=== PATIENT | female | born 1950 | race Caucasian/White ===

== ENCOUNTER 2016-06-28 13:03 | Outpatient (CLI) | payer MEDICARE, BC ==
[2016-06-28] MEDS ORDERED: IOTHALAMATE MEGLUMINE 50 ML VIAL IVP ONE (14:15)
[2016-06-28] MEDS ORDERED: GADOPENTETATE DIMEGLUMINE 5 ML VIAL IVP ONE (14:15)
[2016-06-28] MEDS: BUFFERED LIDOCAINE 10 ML SYRINGE IU ONE ×3 (14:25→14:27)
== END 2016-06-28 13:04 | disposition home or self-care (01) ==
DX: M75.102 Unspecified rotator cuff tear or rupture of left shoulder, not specified as traumatic (principal)
CPT/HCPCS: 23350; 73222; 77002; Q9961

== ENCOUNTER 2016-10-31 11:00 | Outpatient (CLI) | payer MEDICARE, BC | END 2016-10-31 11:01 | disposition home or self-care (01) | LOC: LAB.R 11:00 | PROVIDERS: ATTEND Family Medicine | DX: R30.0 Dysuria (principal) | CPT/HCPCS: 87077; 87086 ==

== ENCOUNTER 2016-11-08 17:44 | Outpatient (CLI) | payer MEDICARE, BC ==
--- NOTE | 2016-11-09 09:32 | Ultrasound Report ---
RENAL ULTRASOUND: 11/08/2016 CLINICAL INDICATION: Hematuria, chronic kidney disease. TECHNIQUE: Real-time scanning was performed with merchandising representative static images obtained. FINDINGS: The right kidney measures 9.0 x 5.9 x 4.8 cm, and the left kidney measures 10.0 x 5.3 x 4. 9 cm. No hydronephrosis or focal renal lesion is appreciated. Prevoid, the urinary bladder measures 7.4 x 6.3 x 5.3 cm, yielding a prevoid volume of 127 mL. Postv oid residual is 27 mL. No focal bladder lesion is seen. IMPRESSION: POSTVOID RESIDUAL OF 27 ML. NORMAL APPEARANCE OF THE KIDNEYS. JOB #: [id number] EXT JOB #:[id number]
== END 2016-11-08 17:45 | disposition home or self-care (01) ==
LOC: DI 17:44
PROVIDERS: ATTEND Family Medicine
DX: R31.9 Hematuria, unspecified (principal); N18.3 Chronic kidney disease, stage 3 (moderate)
CPT/HCPCS: 76770

== ENCOUNTER 2017-03-27 10:36 | Outpatient (CLI) | payer MEDICARE, BC ==
--- NOTE | 2017-03-29 11:31 | Mammography Report ---
DIGITAL SCREENING MAMMOGRAM: 03/27/2017 CLINICAL INDICATION: A 66-year-old with family history of breast cancer, for screening. COMPARISON: 12/2015, 11/2014, 03/2013, 12/2011, 09/2010, 09/2009. TECHNIQUE: Routine CC and MLO projections were obtained of the breasts. FINDINGS: Parenchymal tissue within the breasts is predominantly fatty replaced. There are no domina nt masses, suspicious microcalcifications, or secondary signs of malignancy. In comparison to the pre vious studies, there are no significant changes. IMPRESSION: NO MAMMOGRAPHIC EVIDENCE OF MALIGNANCY. NO SIGNIFICANT INTERVAL CHANGES. RECOMMENDATION: Screening mammography is recommended annually. BIRADS category 1 - negative. STANDARD QUALIFYING STATEMENTS 1. This examination was reviewed with the aid of Computed-Aided Detection (CAD). 2. A negative or benign imaging report should not delay biopsy if clinically suspicious findings are present. Consider surgical consultation if warranted. More than 5% of cancers are not identified by i maging. 3. Dense breasts may obscure an underlying neoplasm. JOB #: [id number] EXT JOB #:[id number]
== END 2017-03-27 10:37 | disposition home or self-care (01) ==
LOC: DI 10:36
PROVIDERS: ATTEND Physician Assistant Medical
DX: Z12.31 Encounter for screening mammogram for malignant neoplasm of breast (principal); Z80.3 Family history of malignant neoplasm of breast
CPT/HCPCS: 77067

== ENCOUNTER 2017-04-25 08:00 | Outpatient (CLI) | payer MEDICARE, BC ==
[2017-04-25 18:41] LABS: HCT - HEMATOCRIT 39.3 % (37.0-47.0); HGB - HEMOGLOBIN 12.5 g/dL (12.0-16.0); MEAN CORPUSCULAR HGB CONC 31.8 g/dL (32.0-36.0); MEAN CORPUSCULAR VOLUME 91.2 fL (81.0-99.0); MEAN PLATELET VOLUME 9.4 fL (7.9-10.8); RED BLOOD COUNT 4.3 10^6/uL (4.20-5.40); RED CELL DISTRIBUTION WIDTH 15.5 % (12.0-15.0)
[2017-04-25 18:55] LABS: CALCIUM 9.4 mg/dL (8.5-10.3); CREATININE 1.7 mg/dL (0.4-1.0); POTASSIUM 3.9 mmol/L (3.5-5.0)
== END 2017-04-25 23:59 ==
LOC: LAB.WCP 08:00
PROVIDERS: ATTEND Family Medicine
DX: N18.3 Chronic kidney disease, stage 3 (moderate) (principal)
CPT/HCPCS: 36415; 80048

== ENCOUNTER 2017-05-28 11:36 | Outpatient (CLI) | payer MEDICARE, BC ==
--- NOTE | 2017-05-28 19:32 | XRAY Report ---
DATE OF SERVICE: 05/28/2017 RIGHT HIP AND PELVIS: 05/28/2017 CLINICAL INDICATION: Fall, pain. Frontal view of the hips and pelvis and frogleg lateral view of the right hip demonstrate no evidence of acute fracture or dislocation. Mild osteoarthritis is present. Vascular calcifications are noted. No foreign body is seen in the soft tissues. IMPRESSION: Mild osteoarthritis. No evidence of fracture. TD: 05/28/2017 20:24
== END 2017-05-28 11:37 | disposition home or self-care (01) ==
LOC: DI 11:36
PROVIDERS: ATTEND Physician Assistant Medical
DX: M16.11 Unilateral primary osteoarthritis, right hip (principal)

== ENCOUNTER 2017-06-28 09:35 | Outpatient (CLI) | payer MEDICARE, BC ==
--- NOTE | 2017-07-02 09:37 | DEXA Report ---
DEXA SCAN: 06/28/2017 CLINICAL INDICATION: Postmenopausal. TECHNIQUE: Dual energy x-ray absorptiometry (DXA) was performed on a [employer] system. Regions measured are the AP spine, femoral neck, and, if needed, forearm. COMPARISON: None. Using the data from the left forearm and left hip. In accordance with the International Society for Clinical Densitometry (ISCD) guidelines, data from previous exams may be reanalyzed using current recommendations and techniques. This is done to allow a more accurate basis for comparison with the current study. FINDINGS: The data for the hip is as follows: REGION BMD (g/cm/cm) T-SCORE Z-SCORE Neck 0.693 -2.5 -1.7 TOTAL 0.851 -1.2 -0.7 The data for the forearm is as follows: REGION BMD (g/cm/cm) T-SCORE Z-SCORE 1/3 1.010 1.5 3.1 TOTAL 0.775 1.7 3.3 IMPRESSION 1. THE WHO CLASSIFICATION BASED ON THE INTERNATIONAL REFERENCE STANDARD IS OSTEOPOROSIS (REFERENCE LEFT FEMORAL NECK). THE FRACTURE RISK IS HIGH. 2. LUMBAR SPINE EVALUATION NOT PERFORMED, SECONDARY TO MULTIPLE LUMBAR SURGERIES. RECOMMENDATION: Patients with diagnosis of osteoporosis or osteopenia should have regular bone mineral density assessment. For those eligible for Medicare, routine testing is allowed once every 2 years. Testing frequency can be increased for patients who have rapidly progressing disease or for those who are receiving medical therapy to restore bone mass. COMMENT: World Health Organization (WHO) definitions for osteoporosis and osteopenia: NORMAL BMD: T-score at 1.0 or higher, fracture risk is low. OSTEOPENIA BMD: T-score between 1.0 and -2.5, fracture risk is increased. OSTEOPOROSIS BMD: T-score at 2.5 or lower, fracture risk high. National Osteoporosis Foundation recommends: 1. Obtain adequate dietary calcium (at least 1200 mg per day) and vitamin D (400 -800 international units per day). 2. Participate, as appropriate, in regular weightbearing and muscle- strengthening exercise. 3. Avoid tobacco use and reduce alcohol and caffeine intake. 4. For more detailed information see the website at www.NOF.org. MTDD
== END 2017-06-28 09:36 | disposition home or self-care (01) ==
LOC: DI 09:35
PROVIDERS: ATTEND Family Medicine
DX: M81.0 Age-related osteoporosis without current pathological fracture (principal)
CPT/HCPCS: 77080; 77081

== ENCOUNTER 2017-10-14 09:57 | Outpatient (CLI) | payer MEDICARE, BC ==
[2017-10-14 13:39] LABS: BASOPHILS % (AUTO) 0.7 %; EOSINOPHILS % (AUTO) 1.3 %; HGB - HEMOGLOBIN 12.4 g/dL (12.0-16.0); LYMPHOCYTES % (AUTO) 6.6 %; MEAN CORPUSCULAR HEMOGLOBIN 30.1 pg (27.0-31.0); MEAN CORPUSCULAR HGB CONC 32.9 g/dL (32.0-36.0); MEAN CORPUSCULAR VOLUME 91.6 fL (81.0-99.0); MEAN PLATELET VOLUME 8.9 fL (7.9-10.8); MONOCYTES % (AUTO) 8.8 %; NEUTROPHILS % (AUTO) 82.6 %; PLT - PLATELET COUNT 199 10^3/uL (130-450); RED CELL DISTRIBUTION WIDTH 16.1 % (12.0-15.0); WHITE BLOOD COUNT 9.2 x10^3/uL (4.8-10.8)
[2017-10-14 13:51] LABS: ABNORMAL LYMPHS % (MANUAL) 0 %
[2017-10-14 13:58] LABS: ALBUMIN 3.6 g/dL (3.2-5.5); ALBUMIN/GLOBULIN RATIO 1.3 (1.0-2.2); BILIRUBIN,TOTAL 0.6 mg/dL (0.2-1.0); CALCIUM 9.1 mg/dL (8.5-10.3); CREATININE 1.7 mg/dL (0.4-1.0); CRP HIGH SENSITIVITY 3.8 mg/L; TOTAL PROTEIN 6.3 g/dL (6.7-8.2)
[2017-10-14 14:31] LABS: BAND NEUTROPHILS % (MANUAL) 2 %; BASOPHILS # (MANUAL) 0.3 10^3/uL (0-0.1); BASOPHILS % (MANUAL) 3 %; EOSINOPHILS # (MANUAL) 0.1 10^3/uL (0-0.7); LYMPHOCYTES # (MANUAL) 0.6 10^3/uL (1.5-3.5); LYMPHOCYTES % (MANUAL) 7 %; MONOCYTES # (MANUAL) 0.7 10^3/uL (0.0-1.0); NEUTROPHILS # (MANUAL) 7.5 10^3/uL (1.5-6.6); NEUTROPHILS % (MANUAL) 79 %
[2017-10-14 14:32] LABS: DIFFERENTIAL COMMENT MANUAL DIFFERENTIAL
== END 2017-10-14 09:58 | disposition home or self-care (01) ==
LOC: LAB.WCP 09:57
PROVIDERS: ATTEND Internal Medicine Rheumatology
DX: M05.79 Rheumatoid arthritis with rheumatoid factor of multiple sites without organ or systems involvement (principal); Z79.899 Other long term (current) drug therapy
CPT/HCPCS: 36415; 80053; 85025; 85651; 86141

== ENCOUNTER 2018-04-21 10:10 | Outpatient (CLI) | payer MEDICARE, BC ==
--- NOTE | 2018-04-22 08:51 | Mammography Report ---
Reason: SCREENING MAMMO Procedure Date: 04/21/2018 Accession Number: [id number] / [id number] Procedure: MGN - Screening Mammo Dig Bilat CPT Code: FULL RESULT: EXAM: Screening Mammo Dig Bilat DATE: 04/21/2018 10:40 AM CLINICAL HISTORY: Screening. Family history breast cancer mother age 55, grandmother age 50. No reported personal history of breast cancer. TECHNIQUE: Bilateral CC and MLO views were obtained. COMPARISON: 03/27/2017 through 04/03/2013 FINDINGS: The breasts demonstrate diffuse fatty replacement bilaterally. Bilateral breasts: There are no suspicious masses, calcifications or areas of distortion. IMPRESSION: Negative examination RECOMMENDATION: Routine annual screening unless otherwise clinically indicated. Given family history, patient may be at elevated risk for development of breast cancer. Consider formal breast cancer risk assessment; if elevated, patient may benefit from advanced screening. BI-RADS CATEGORY negative STANDARD QUALIFYING STATEMENTS: 1. This examination was reviewed with the aid of Computer-Aided Detection (CAD). 2. A negative or benign imaging report should not preclude biopsy if clinically suspicious findings are present. 3. Dense breasts may obscure an underlying neoplasm. 4. This examination was reviewed without the aid of 3D breast imaging (tomosynthesis).
== END 2018-04-21 10:11 | disposition home or self-care (01) ==
LOC: DI.N 10:10
DX: Z12.31 Encounter for screening mammogram for malignant neoplasm of breast (principal); Z80.3 Family history of malignant neoplasm of breast
CPT/HCPCS: 77067

== ENCOUNTER 2018-07-08 08:00 | Outpatient (CLI) | payer MEDICARE, BC | END 2018-07-08 23:59 | disposition home or self-care (01) | LOC: LAB.WCP 08:00 | PROVIDERS: ATTEND Family Medicine | DX: R30.0 Dysuria (principal) | CPT/HCPCS: 81002 ==

== ENCOUNTER 2018-07-09 09:20 | Outpatient (CLI) | payer MEDICARE, BC | END 2018-07-09 23:59 | disposition home or self-care (01) | LOC: LAB.WCP 09:20 | PROVIDERS: ATTEND Family Medicine | DX: R30.0 Dysuria (principal) | CPT/HCPCS: 87086; 87181 ==

== ENCOUNTER 2018-07-24 08:00 | Outpatient (CLI) | payer MEDICARE, BC ==
[2018-07-24 19:21] LABS: BILIRUBIN,URINE NEGATIVE (NEGATIVE); GLUCOSE, URINE (UA) NEGATIVE (NEGATIVE); KETONES,URINE (UA) NEGATIVE (NEGATIVE); LEUKOCYTE ESTERASE, URINE NEGATIVE (NEGATIVE); NITRITE,URINE NEGATIVE (NEGATIVE); OCCULT BLOOD,URINE NEGATIVE (NEGATIVE); PH,URINE 5.5 PH (5.0-7.5); PROTEIN,URINE NEGATIVE (NEGATIVE); UROBILINOGEN,URINE 0.2 (NORMAL) E.U./dL (NORMAL)
[2018-07-24 19:43] LABS: AMORPHOUS SEDIMENT,UR Few /LPF; BACTERIA,URINE None Seen /HPF (None Seen); CLARITY,URINE CLEAR (CLEAR); RBC,URINE None Seen /HPF (0-5); SQUAMOUS EPITHELIAL CELL,UR MANY Squamous (<= Few)
== END 2018-07-24 08:01 | disposition home or self-care (01) ==
LOC: LAB.WCP 08:00
PROVIDERS: ATTEND Family Medicine
DX: R30.0 Dysuria (principal)
CPT/HCPCS: 81001; 87086

== ENCOUNTER 2018-08-02 21:12 | Outpatient (CLI) | payer MEDICARE, BC | END 2018-08-02 21:13 | disposition critical access hospital (66) | LOC: EMS 21:12 | PROVIDERS: ATTEND Surgery | DX: R44.0 Auditory hallucinations (principal); R44.1 Visual hallucinations; R53.1 Weakness; R42 Dizziness and giddiness | CPT/HCPCS: A0425; A0429 ==

== ENCOUNTER 2018-08-02 21:31 | Emergency (ER) | payer MEDICARE, BC ==
--- NOTE | 2018-08-02 21:55 | ED Physician Documentation ---
PD HPI ALTERED MENTAL STATUS - Stated complaint Stated Complaint: HALLUCINATING/POST SURG - Chief complaint Chief Complaint: MHE - History obtained from History obtained from: Patient, Family (spouse) - History of Present Illness Timing - onset: How many days ago (2) Timing - duration: Days (2) Timing - details: Gradual onset, Constant, Waxing and waning Quality / character: Confused, Hallucinating Associated symptoms: General weakness. No: Fever, Headache, Stiff neck, Dyspnea, Cough, NVD, Urinary sx, Focal weakness Contributing factors: New medication (has been taking post-operative oxycodone and hydroxyzine, but has had neither of these since midnight last night (22 h ours ago)). No: Anticoagulated Basline status: Alert and oriented X 3, Ambulatory, Independent Similar symptoms before: Has not had sx before Recently seen: Surgery - Additional information Additional information: patient had surgery on left foot 4 days ago (for gradually worsening chronic condition; per spouse, there was hardware placed and also a procedure on the posterior calf muscles where they insert to the heel). The procedure was performed at [facility]. For the past 2 days, she has exhibited increasing confusion, disorientation, intermittently hallucinating (visual). She has been increasingly drowsy at times (such as falling asleep while eating), and has had increasing generalized weakness (could feed self up until yesterday but today could not even raise food or drink up to her mouth). Since this afternoon, she has been too weak to stand and/or transfer, even with assistance from spouse and other family. Review of Systems Constitutional: reports: Fatigue. denies: Fever, Chills, Sweats Eyes: reports: Reviewed and negative Cardiac: reports: Reviewed and negative Respiratory: reports: Reviewed and negative GI: reports: Reviewed and negative : denies: Dysuria, Frequency Skin: denies: Rash Musculoskeletal: reports: Extremity swelling. denies: Extremity pain (post- operative LLE pain but has been improving, even without having pain medications for nearly 24 hours) Neurologic: reports: Generalized weakness, Confused. 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 - Present Medications Home Medications: Ambulatory Orders Medication Instructions Recorded Confirmed Atorvastatin [Lipitor] 10 mg PO DAILY 07/20/16 08/02/18 Hydroxychloroquine [Plaquenil] 200 mg PO BID 07/20/16 08/02/18 Prednisone 5 mg PO DAILY 07/20/16 08/02/18 Leflunomide 20 mg PO QDAC 08/03/16 08/02/18 Venlafaxine HCl [Venlafaxine HCl 2 cap PO QPM 08/03/16 08/02/18 ER] Alendronate [Fosamax] 70 mg PO ONCE 11/08/17 08/02/18 Aspirin 1 tab PO DAILY 08/02/18 08/02/18 Bupropion HCl [Bupropion HCl Sr] 1 tab PO BID 08/02/18 08/02/18 Gabapentin 1 cap PO BID 08/02/18 08/02/18 Losartan/Hydrochlorothiazide 1 tab PO DAILY 08/02/18 08/02/18 [Losartan-Hctz 100-25 mg Tab] - Allergies Allergies/Adverse Reactions: Allergies Allergy/AdvReac Type Severity Reaction Status Date / Time lisinopril Allergy Unknown Verified 08/02/18 22:29 Sulfa (Sulfonamide Allergy Unknown Verified 08/02/18 22:29 Antibiotics) - Social History Does the pt smoke?: No Smoking Status: Never smoker Does the pt drink ETOH?: No Does the pt have substance abuse?: No - Immunizations Immunizations are current?: Yes - POLST Patient has POLST: No PD ED PE NORMAL - Vitals Vital signs reviewed: Yes - General General: No acute distress, Well developed/nourished, Other (awake, alert, pleasant and conversant. answers quickly, articulately, and intelligibly. However, (present in ED at bedside) says many of her answers are lin ccurate. Also, she is disoriented to time (says month is September after much thought; says year is 1966, then . Eventually recalls who the President is). ) - HEENT HEENT: Atraumatic, PERRL, Moist mucous membranes - Neck Neck: Supple, no meningeal sign - Cardiac Cardiac: RRR, No murmur, No gallop, No rub - Respiratory Respiratory: Clear bilaterally - Abdomen Abdomen: Normal bowel sounds, Soft, Non tender, Non distended - Back Back: No CVA TTP - Derm Derm: Warm and dry - Extremities Extremities: Other (LLE: splint in place with circumferential stocking-like dressing. The dressing is clean (no discharge or blood); toes are visible and they have brisk capillary refill, normal color, and light touch sensation intact) - Neuro Neuro: thread singer 2-12 intact, No motor deficit, No sensory deficit, Normal speech Eye Opening: Spontaneous Motor: Obeys Commands Verbal: Confused GCS Score: 14 - Psych Psych: Normal mood, Normal affect Results - Vitals Vitals: Vital Signs - 24 hr 08/02/18 08/02/18 08/02/18 21:30 22:26 22:49 Temperature 37.5 C Heart Rate 100 96 97 Respiratory 28 H 22 18 Rate Blood Pressure 110/43 L 107/63 119/47 L O2 Saturation 100 96 08/02/18 08/02/18 08/03/18 23:11 23:22 00:28 Temperature 36.5 C 36.8 C 36.4 C L Heart Rate 96 97 Respiratory 17 21 Rate Blood Pressure 110/45 L 91/69 O2 Saturation 98 08/03/18 08/03/18 08/03/18 00:33 00:48 00:50 Temperature 36.5 C 36.7 C 36.7 C Heart Rate 102 H 101 H 106 H Respiratory 19 16 19 Rate Blood Pressure 90/56 L 99/88 H 99/88 H O2 Saturation 98 08/03/18 08/03/18 08/03/18 01:12 01:34 02:01 Temperature 36.6 C 36.7 C Heart Rate 99 99 98 Respiratory 20 20 20 Rate Blood Pressure 94/46 L 95/67 91/70 O2 Saturation 98 98 98 08/03/18 02:18 Temperature 36.5 C Heart Rate 95 Respiratory 20 Rate Blood Pressure 91/70 O2 Saturation Oxygen O2 Source Room air - Labs Labs: Laboratory Tests 08/02/18 08/02/18 08/02/18 21:55 21:55 21:55 WBC 6.9 RBC 2.20 L Hgb 6.5 L* Hct 19.6 L* MCV 89.0 MCH 29.5 MCHC 33.2 RDW 15.6 H Plt Count 203 MPV 8.2 Reticulocyte % (Auto) Neut # (Auto) 4.9 Lymph # (Auto) 0.7 L Steele # (Auto) 1.1 H Eos # (Auto) 0.2 Baso # (Auto) 0.0 Absolute Nucleated RBC 0.00 Nucleated RBC % 0.0 Absolute Retic PT 12.2 INR 1.1 Sodium 132 L Potassium 4.3 Chloride 91 L Carbon Dioxide 25 Anion Gap 16.0 H BUN 67 H Creatinine 4.8 H Estimated GFR (MDRD) 9 L Glucose 101 H Lactic Acid Calcium 8.5 Iron TIBC Transferrin Ferritin Total Bilirubin 0.7 AST 56 H ALT 10 Alkaline Phosphatase 210 H Lactate Dehydrogenase Total Protein 6.2 L Albumin 2.9 L Globulin 3.3 Albumin/Globulin Ratio 0.9 L Lipase 21 L Urine Color Urine Clarity Urine pH Ur Specific Rose Urine Protein Urine Glucose (UA) Urine Ketones Urine Occult Blood Urine Nitrite Urine Bilirubin Urine Urobilinogen Ur Leukocyte Esterase Urine RBC Urine WBC Ur Squamous Epith Cells Amorphous Sediment Urine Bacteria Urine Casts Ur Microscopic Review Urine Culture Comments Influenza A (Rapid) Influenza B (Rapid) Blood Type Blood Type Recheck Antibody Screen Crossmatch IS Only 08/02/18 08/02/18 08/02/18 22:10 22:10 22:10 WBC RBC Hgb Hct MCV MCH MCHC RDW Plt Count MPV Reticulocyte % (Auto) Neut # (Auto) Lymph # (Auto) Steele # (Auto) Eos # (Auto) Baso # (Auto) Absolute Nucleated RBC Nucleated RBC % Absolute Retic PT INR Sodium Potassium Chloride Carbon Dioxide Anion Gap BUN Creatinine Estimated GFR (MDRD) Glucose Lactic Acid 1.1 Calcium Iron TIBC Transferrin Ferritin Total Bilirubin AST ALT Alkaline Phosphatase Lactate Dehydrogenase Total Protein Albumin Globulin Albumin/Globulin Ratio Lipase Urine Color YELLOW Urine Clarity HAZY Urine pH 5.5 Ur Specific Rose >=1.030 H Urine Protein TRACE Urine Glucose (UA) NEGATIVE Urine Ketones NEGATIVE Urine Occult Blood SMALL H Urine Nitrite NEGATIVE Urine Bilirubin NEGATIVE Urine Urobilinogen 0.2 (NORMAL) Ur Leukocyte Esterase NEGATIVE Urine RBC 6-10 H Urine WBC 0-3 Ur Squamous Epith Cells FEW Squamous Amorphous Sediment Few Urine Bacteria Few Urine Casts 11-25 Hyaline Casts Ur Microscopic Review INDICATED Urine Culture Comments NOT INDICATED Influenza A (Rapid) Negative Influenza B (Rapid) Negative Blood Type Blood Type Recheck Antibody Screen Crossmatch IS Only 08/02/18 08/02/18 08/03/18 22:50 23:39 00:16 WBC RBC Hgb 6.2 L* Hct 18.6 L* MCV MCH MCHC RDW Plt Count MPV Reticulocyte % (Auto) Neut # (Auto) Lymph # (Auto) Steele # (Auto) Eos # (Auto) Baso # (Auto) Absolute Nucleated RBC Nucleated RBC % Absolute Retic PT INR Sodium Potassium Chloride Carbon Dioxide Anion Gap BUN Creatinine Estimated GFR (MDRD) Glucose Lactic Acid Calcium Iron TIBC Transferrin Ferritin Total Bilirubin AST ALT Alkaline Phosphatase Lactate Dehydrogenase Total Protein Albumin Globulin Albumin/Globulin Ratio Lipase Urine Color Urine Clarity Urine pH Ur Specific Rose Urine Protein Urine Glucose (UA) Urine Ketones Urine Occult Blood Urine Nitrite Urine Bilirubin Urine Urobilinogen Ur Leukocyte Esterase Urine RBC Urine WBC Ur Squamous Epith Cells Amorphous Sediment Urine Bacteria Urine Casts Ur Microscopic Review Urine Culture Comments Influenza A (Rapid) Influenza B (Rapid) Blood Type A NEGATIVE Blood Type Recheck A NEGATIVE Antibody Screen NEGATIVE Crossmatch IS Only See Detail 08/03/18 08/03/18 08/03/18 01:10 01:10 01:10 WBC RBC Hgb Hct MCV MCH MCHC RDW Plt Count MPV Reticulocyte % (Auto) Neut # (Auto) Lymph # (Auto) Steele # (Auto) Eos # (Auto) Baso # (Auto) Absolute Nucleated RBC Nucleated RBC % Absolute Retic PT INR Sodium Potassium Chloride Carbon Dioxide Anion Gap BUN Creatinine Estimated GFR (MDRD) Glucose Lactic Acid Calcium Iron < 6 L TIBC 256 Transferrin 183 L Ferritin 118.6 Total Bilirubin AST ALT Alkaline Phosphatase Lactate Dehydrogenase 253 H Total Protein Albumin Globulin Albumin/Globulin Ratio Lipase Urine Color Urine Clarity Urine pH Ur Specific Rose Urine Protein Urine Glucose (UA) Urine Ketones Urine Occult Blood Urine Nitrite Urine Bilirubin Urine Urobilinogen Ur Leukocyte Esterase Urine RBC Urine WBC Ur Squamous Epith Cells Amorphous Sediment Urine Bacteria Urine Casts Ur Microscopic Review Urine Culture Comments Influenza A (Rapid) Influenza B (Rapid) Blood Type Blood Type Recheck Antibody Screen Crossmatch IS Only 08/03/18 01:10 WBC RBC 2.16 L Hgb Hct MCV MCH MCHC RDW Plt Count MPV Reticulocyte % (Auto) 3.78 H Neut # (Auto) Lymph # (Auto) Steele # (Auto) Eos # (Auto) Baso # (Auto) Absolute Nucleated RBC Nucleated RBC % Absolute Retic 0.082 PT INR Sodium Potassium Chloride Carbon Dioxide Anion Gap BUN Creatinine Estimated GFR (MDRD) Glucose Lactic Acid Calcium Iron TIBC Transferrin Ferritin Total Bilirubin AST ALT Alkaline Phosphatase Lactate Dehydrogenase Total Protein Albumin Globulin Albumin/Globulin Ratio Lipase Urine Color Urine Clarity Urine pH Ur Specific Rose Urine Protein Urine Glucose (UA) Urine Ketones Urine Occult Blood Urine Nitrite Urine Bilirubin Urine Urobilinogen Ur Leukocyte Esterase Urine RBC Urine WBC Ur Squamous Epith Cells Amorphous Sediment Urine Bacteria Urine Casts Ur Microscopic Review Urine Culture Comments Influenza A (Rapid) Influenza B (Rapid) Blood Type Blood Type Recheck Antibody Screen Crossmatch IS Only - Rads (name of study) chest xray Radiology: Prelim report reviewed, See rad report CT head Radiology: Prelim report reviewed, See rad report PD MEDICAL DECISION MAKING - ED course Complexity details: reviewed old records, reviewed results, re-evaluated patient, considered differential, d/w patient, d/w family ED course: D/W Dr. Rao ([facility]), accepts patient for transfer to [facility] Departure - Departure Disposition: 02 Transfer Acute Care Hosp Clinical Impression: Acute kidney injury Anemia Qualifiers: Anemia type: unspecified type Qualified Code(s): D64.9 - Anemia, unspecified Altered mental status Qualifiers: Altered mental status type: disorientation Qualified Code(s): R41.0 - Disorientation, unspecified Condition: Stable Discharge Date/Time: 08/03/18 02:20
[2018-08-02 22:18] LABS: EOSINOPHILS # (AUTO) 0.2 10^3/uL (0.0-0.7); EOSINOPHILS % (AUTO) 2.7 %; LYMPHOCYTES # (AUTO) 0.7 10^3/uL (1.5-3.5); LYMPHOCYTES % (AUTO) 10.4 %; MEAN CORPUSCULAR HEMOGLOBIN 29.5 pg (27.0-31.0); MEAN CORPUSCULAR HGB CONC 33.2 g/dL (32.0-36.0); MEAN PLATELET VOLUME 8.2 fL (7.9-10.8); MONOCYTES # (AUTO) 1.1 10^3/uL (0.0-1.0); MONOCYTES % (AUTO) 15.8 %; NEUTROPHILS # (AUTO) 4.9 10^3/uL (1.5-6.6); NEUTROPHILS % (AUTO) 71.1 %; PLT - PLATELET COUNT 203 10^3/uL (130-450); RED CELL DISTRIBUTION WIDTH 15.6 % (12.0-15.0); WHITE BLOOD COUNT 6.9 x10^3/uL (4.8-10.8)
[2018-08-02 22:22] LABS: HGB - HEMOGLOBIN 6.5 g/dL (12.0-16.0)
[2018-08-02 22:27] LABS: ALBUMIN 2.9 g/dL (3.2-5.5); ALBUMIN/GLOBULIN RATIO 0.9 (1.0-2.2); BILIRUBIN,TOTAL 0.7 mg/dL (0.2-1.0); CALCIUM 8.5 mg/dL (8.5-10.3); CREATININE 4.8 mg/dL (0.4-1.0); TOTAL PROTEIN 6.2 g/dL (6.7-8.2)
[2018-08-02 22:32] LABS: BILIRUBIN,URINE NEGATIVE (NEGATIVE); GLUCOSE, URINE (UA) NEGATIVE (NEGATIVE); KETONES,URINE (UA) NEGATIVE (NEGATIVE); LEUKOCYTE ESTERASE, URINE NEGATIVE (NEGATIVE); NITRITE,URINE NEGATIVE (NEGATIVE); OCCULT BLOOD,URINE SMALL (NEGATIVE); PH,URINE 5.5 PH (5.0-7.5); PROTEIN,URINE TRACE mg/dL (NEGATIVE); UROBILINOGEN,URINE 0.2 (NORMAL) E.U./dL (NORMAL)
[2018-08-02 22:36] LABS: CLARITY,URINE HAZY (CLEAR)
[2018-08-02 22:51] LABS: BACTERIA,URINE Few /HPF (None Seen); SQUAMOUS EPITHELIAL CELL,UR FEW Squamous (<= Few)
[2018-08-02 22:52] LABS: AMORPHOUS SEDIMENT,UR Few /LPF; CASTS, URINE 11-25 Hyaline Casts /LPF
--- NOTE | 2018-08-02 22:57 | XRAY Report ---
Reason: AMS Procedure Date: 08/02/2018 Accession Number: [id number] / [id number] Procedure: XR - Chest 2 View X-Ray CPT Code: 19711 FULL RESULT: EXAM: CHEST RADIOGRAPHY EXAM DATE: 08/02/2018 10:30 PM. CLINICAL HISTORY: AMS. COMPARISON: CHEST 2 VIEW PA/LAT 02/21/2017 1:47 PM. TECHNIQUE: 2 views. FINDINGS: Lungs/Pleura: The level of inspiration is low. There are no acute infiltrates. No pleural effusions. Mediastinum: Heart and mediastinal contours are unremarkable. Other: Total left shoulder replacement is noted. IMPRESSION: No acute infiltrates. Negative chest x-ray. RADIA
--- NOTE | 2018-08-02 23:07 | CT Report ---
Reason: AMS Procedure Date: 08/02/2018 Accession Number: [id number] / [id number] Procedure: CT - HEAD WO CPT Code: FULL RESULT: EXAM: CT HEAD EXAM DATE: 08/02/2018 10:31 PM. CLINICAL HISTORY: Altered mental status. COMPARISON: None. TECHNIQUE: Multiaxial CT images were obtained from the foramen magnum to the vertex. Reformats: Sagittal and coronal. IV contrast: None. In accordance with CT protocol optimization, one or more of the following dose reduction techniques were utilized for this exam: automated exposure control, adjustment of mA and/or KV based on patient size, or use of iterative reconstructive technique. FINDINGS: Parenchyma: No intraparenchymal hemorrhage. No evidence of mass, midline shift, or CT findings of infarction. Xavier-white differentiation is distinct. Extraaxial Spaces: Normal for age. No subdural or epidural collections identified. Ventricles: Somewhat prominent given the degree of sulcal prominence. Chambers ratio is 0.36. Sinuses and Orbits: Imaged paranasal sinuses, orbits, and mastoids show no significant abnormality. Bones: No evidence of fracture or calvarial defect. Other: None. IMPRESSION: 1. Prominent ventricles may reflect central volume loss or normal pressure hydrocephalus. 2. No acute or focal intracranial process identified. RADIA
[2018-08-02 23:46] LABS: HGB - HEMOGLOBIN 6.2 g/dL (12.0-16.0)
[2018-08-03] MEDS ORDERED: PANTOPRAZOLE 40 MG VIAL IVP STA (00:39)
[2018-08-03 00:54] LABS: INR 1.1 (0.8-1.2); PT - PROTHROMBIN TIME 12.2 secs (9.9-12.6)
[2018-08-03 01:22] LABS: ABSOLUTE RETICS # AUTO 0.082 10^6/uL (0.020-0.110); MEAN RETIC VALUE 112.6; RED BLOOD COUNT 2.16 10^6/uL (4.20-5.40)
[2018-08-03 01:57] LABS: IRON < 6 ug/dL (28-170); TOTAL IRON BINDING CAPACITY 256 ug/dL (250-450); TRANSFERRIN 183 mg/dL (192-382)
[2018-08-03 02:03] VITALS: BP 91/70
== END 2018-08-03 02:20 | disposition short-term general hospital (02) ==
LOC: EDUNIT# → ED 21:31
DX: N17.9 Acute kidney failure, unspecified (principal); D64.9 Anemia, unspecified; R41.0 Disorientation, unspecified; I10 Essential (primary) hypertension; E78.00 Pure hypercholesterolemia, unspecified; Z98.890 Other specified postprocedural states; Z96.659 Presence of unspecified artificial knee joint
CPT/HCPCS: 36415; 36430; 70450; 71046; 80053; 81001; 82728; 83010; 83540; 83605; 83615; 83690; 84466; 85014; 85018; 85025; 85044; 85610; 86850; 86900; 86901; 86920; 87040; 87275; 87276; 96374; 99285; P9016; 81003; 87086

== ENCOUNTER 2018-08-03 02:21 | Outpatient (CLI) | payer MEDICARE, BC | END 2018-08-03 02:22 | disposition short-term general hospital (02) | LOC: EMS 02:21 | PROVIDERS: ATTEND Surgery | DX: D64.9 Anemia, unspecified (principal); R41.0 Disorientation, unspecified | CPT/HCPCS: A0425; A0426 ==

== ENCOUNTER 2018-08-11 08:00 | Outpatient (CLI) | payer MEDICARE, BC ==
[2018-08-11 19:21] LABS: BASOPHILS % (AUTO) 0.5 %; EOSINOPHILS % (AUTO) 1.9 %; LYMPHOCYTES % (AUTO) 6.2 %; MEAN CORPUSCULAR HEMOGLOBIN 29.8 pg (27.0-31.0); MEAN CORPUSCULAR HGB CONC 32.4 g/dL (32.0-36.0); MEAN CORPUSCULAR VOLUME 91.9 fL (81.0-99.0); MONOCYTES % (AUTO) 7.4 %; PLT - PLATELET COUNT 385 10^3/uL (130-450); RED BLOOD COUNT 3.71 10^6/uL (4.20-5.40); WHITE BLOOD COUNT 9.9 x10^3/uL (4.8-10.8)
[2018-08-11 19:39] LABS: ABNORMAL LYMPHS % (MANUAL) 0 %
[2018-08-11 19:41] LABS: ALBUMIN 3.6 g/dL (3.2-5.5); ALBUMIN/GLOBULIN RATIO 1.2 (1.0-2.2); BILIRUBIN,TOTAL 0.8 mg/dL (0.2-1.0); CALCIUM 8.9 mg/dL (8.5-10.3); CREATININE 1.7 mg/dL (0.4-1.0); TOTAL PROTEIN 6.6 g/dL (6.7-8.2)
[2018-08-11 19:57] LABS: BAND NEUTROPHILS % (MANUAL) 1 %; BASOPHILS # (MANUAL) 0.1 10^3/uL (0-0.1); BASOPHILS % (MANUAL) 1 %; LYMPHOCYTES # (MANUAL) 0.7 10^3/uL (1.5-3.5); LYMPHOCYTES % (MANUAL) 7 %; MONOCYTES # (MANUAL) 0.7 10^3/uL (0.0-1.0); MYELOCYTES % (MANUAL) 3 %; NEUTROPHILS # (MANUAL) 8.1 10^3/uL (1.5-6.6); NEUTROPHILS % (MANUAL) 81 %
[2018-08-11 20:02] LABS: DIFFERENTIAL COMMENT MANUAL DIFFERENTIAL; PLATELET ESTIMATE, MANUAL NORMAL (130-450,000) (NORMAL); PLATELET MORPHOLOGY NORMAL APPEARANCE (NORMAL); RBC MORPHOLOGY (MULTIPLE) NORMAL APPEARANCE (NORMAL)
== END 2018-08-11 23:59 | disposition home or self-care (01) ==
LOC: LAB.WCP 08:00
PROVIDERS: ATTEND Family Medicine
DX: N18.3 Chronic kidney disease, stage 3 (moderate) (principal)
CPT/HCPCS: 36415; 80053; 85025

== ENCOUNTER 2018-08-15 08:00 | Outpatient (CLI) | payer MEDICARE, BC | END 2018-08-15 23:59 | disposition home or self-care (01) | LOC: LAB.R 08:00 | DX: G89.29 Other chronic pain (principal) | CPT/HCPCS: 87070; 87077; 87181; 87205 ==

== ENCOUNTER 2019-05-14 11:30 | Outpatient (CLI) | payer MEDICARE, OTHER | END 2019-05-14 23:59 | disposition home or self-care (01) | LOC: LAB.R 11:30 | PROVIDERS: ATTEND Family Medicine | DX: R30.0 Dysuria (principal) | CPT/HCPCS: 87086; 87181 ==

== ENCOUNTER 2019-06-03 09:56 | Day surgery (SDC) | payer MEDICARE, OTHER ==
[2019-06-03] MEDS ORDERED: LACTATED RINGERS 1,000 ML IV ONE (10:03)
[2019-06-03] MEDS ORDERED: MIDAZOLAM 2 MG/2 ML VIAL IVP ONE (12:35)
[2019-06-03] MEDS ORDERED: fentaNYL 250 MCG/5 ML VIAL IVP ONE (12:35)
[2019-06-03 13:47] VITALS: BP 106/59
== END 2019-06-03 09:57 | disposition home or self-care (01) ==
LOC: SDS 09:56
PROVIDERS: ATTEND Internal Medicine Gastroenterology
PROC: 0DBN8ZZ Excision of Sigmoid Colon, Via Natural or Artificial Opening Endoscopic (ICD-10-PCS; 2019-06-03)
PROC: 0DBK8ZZ Excision of Ascending Colon, Via Natural or Artificial Opening Endoscopic (ICD-10-PCS; 2019-06-03)
PROC: 0DBM8ZZ Excision of Descending Colon, Via Natural or Artificial Opening Endoscopic (ICD-10-PCS; principal; 2019-06-03 11:30)
DX: Z12.11 Encounter for screening for malignant neoplasm of colon (principal); D12.2 Benign neoplasm of ascending colon; D12.5 Benign neoplasm of sigmoid colon; D12.4 Benign neoplasm of descending colon; K57.30 Diverticulosis of large intestine without perforation or abscess without bleeding; I10 Essential (primary) hypertension; E66.9 Obesity, unspecified; Z68.41 Body mass index [BMI] 40.0-44.9, adult
CPT/HCPCS: 45380; 45385; J3010; J7120

== ENCOUNTER 2019-06-16 08:00 | Outpatient (CLI) | payer MEDICARE, OTHER | END 2019-06-16 23:59 | disposition home or self-care (01) | LOC: LAB.R 08:00 | PROVIDERS: ATTEND Family Medicine | DX: Z87.440 Personal history of urinary (tract) infections (principal) | CPT/HCPCS: 87086; 87181 ==

== ENCOUNTER 2019-06-17 08:34 | Outpatient (CLI) | payer MEDICARE, OTHER ==
--- NOTE | 2019-06-24 09:35 | Mammography Report ---
Reason: ROUTINE MAMMO Procedure Date: 06/17/2019 Accession Number: [id number] / [id number] Procedure: LYNNE - Screening Mammo w/Damon CPT Code: Final Report FULL RESULT: EXAM: Screening Mammo w/Damon DATE: 06/17/2019 9:39 AM CLINICAL HISTORY: Screening encounter. History of early menses. Family history of breast cancer in the mother at the age of 55. TECHNIQUE: (B) - Bilateral CC and MLO views were obtained. COMPARISON: 04/21/2018 through 09/03/2009. PARENCHYMAL PATTERN: (F) - The breast(s) demonstrate(s) diffuse fatty replacement. FINDINGS: There are no suspicious masses, calcifications, or areas of distortion. IMPRESSION: Negative examination. BI-RADS category 1. RECOMMENDATION: (ANNUAL) - Recommend routine annual screening mammography. BI-RADS CATEGORY: (1) - Negative. STANDARD QUALIFYING STATEMENTS: 1. This examination was not reviewed with the aid of Computer-Aided Detection (CAD). 2. A negative or benign imaging report should not preclude biopsy if clinically suspicious findings are present. 3. Dense breasts may obscure an underlying neoplasm. 4. This examination was reviewed with the aid of 3D breast imaging (tomosynthesis).
== END 2019-06-17 08:35 | disposition home or self-care (01) ==
LOC: DI 08:34
DX: Z12.31 Encounter for screening mammogram for malignant neoplasm of breast (principal); Z80.3 Family history of malignant neoplasm of breast
CPT/HCPCS: 77063; 77067

== ENCOUNTER 2020-01-14 08:00 | Outpatient (CLI) | payer MEDICARE, OTHER ==
[2020-01-14 12:59] LABS: BILIRUBIN,URINE NEGATIVE (NEGATIVE); GLUCOSE, URINE (UA) NEGATIVE (NEGATIVE); KETONES,URINE (UA) NEGATIVE (NEGATIVE); LEUKOCYTE ESTERASE, URINE TRACE (NEGATIVE); NITRITE,URINE POSITIVE (NEGATIVE); OCCULT BLOOD,URINE NEGATIVE (NEGATIVE); PROTEIN,URINE NEGATIVE (NEGATIVE); UROBILINOGEN,URINE 0.2 (NORMAL) E.U./dL (NORMAL)
[2020-01-14 13:07] LABS: BACTERIA,URINE Many /HPF (None Seen); CLARITY,URINE CLEAR (CLEAR); RBC,URINE None Seen /HPF (0-5); SQUAMOUS EPITHELIAL CELL,UR NONE SEEN (<= Few)
== END 2020-01-14 23:59 | disposition home or self-care (01) ==
LOC: LAB.R 08:00
PROVIDERS: ATTEND Family Medicine
DX: Z87.440 Personal history of urinary (tract) infections (principal)
CPT/HCPCS: 81001; 87086; 87181

== ENCOUNTER 2020-03-18 10:51 | Outpatient (CLI) | payer MEDICARE, OTHER ==
--- NOTE | 2020-03-21 11:48 | XRAY Report ---
PROCEDURE: Chest 2 View X-Ray INDICATIONS: WHEZING TECHNIQUE: 2 view(s) of the chest. COMPARISON: Prior two-view chest 08/02/2018 FINDINGS: Surgical changes and devices: Humeral arthroplasty on the left. Lungs and pleura: No pleural effusions or pneumothorax. Lungs are mildly abnormal with a mild inter stitial prominence previously present. Mediastinum: Mediastinal contours are normal. Heart size is normal. Bones and chest wall: No suspicious bony abnormalities. Soft tissues appear unremarkable. IMPRESSION: Mild chronic interstitial prominence, no pneumonia found. Atypical/viral pneumonia is no t suspected. Reviewed by: Casey Markham MD on 03/21/2020 11:46 AM PST Approved by: Casey Markham MD on 03/21/2020 11:46 AM PST Station ID: [id number]
== END 2020-03-18 23:59 | disposition home or self-care (01) ==
LOC: DI.N 10:51
PROVIDERS: ATTEND Nurse Practitioner
DX: R06.2 Wheezing (principal); Z20.828 Contact with and (suspected) exposure to other viral communicable diseases
CPT/HCPCS: 71046; 87275; 87276; U0004

== ENCOUNTER 2020-04-08 07:50 | Outpatient (CLI) | payer MEDICARE, OTHER ==
[2020-04-08 12:44] LABS: BASOPHILS % (AUTO) 0.9 %; EOSINOPHILS # (AUTO) 0.1 10^3/uL (0.0-0.7); EOSINOPHILS % (AUTO) 1.5 %; HGB - HEMOGLOBIN 11.1 g/dL (12.0-16.0); LYMPHOCYTES % (AUTO) 22.7 %; MEAN CORPUSCULAR HEMOGLOBIN 29.2 pg (27.0-31.0); MEAN CORPUSCULAR HGB CONC 29.9 g/dL (32.0-36.0); MEAN CORPUSCULAR VOLUME 97.6 fL (81.0-99.0); MEAN PLATELET VOLUME 11.3 fL (7.9-10.8); MONOCYTES # (AUTO) 0.6 10^3/uL (0.0-1.0); MONOCYTES % (AUTO) 12.4 %; NEUTROPHILS # (AUTO) 2.8 10^3/uL (1.5-6.6); NEUTROPHILS % (AUTO) 62.1 %; PLT - PLATELET COUNT 153 10^3/uL (130-450); WHITE BLOOD COUNT 4.6 x10^3/uL (4.8-10.8)
[2020-04-08 12:55] LABS: BILIRUBIN,URINE NEGATIVE (NEGATIVE); GLUCOSE, URINE (UA) NEGATIVE (NEGATIVE); KETONES,URINE (UA) NEGATIVE (NEGATIVE); LEUKOCYTE ESTERASE, URINE NEGATIVE (NEGATIVE); NITRITE,URINE POSITIVE (NEGATIVE); OCCULT BLOOD,URINE TRACE-LYSE (NEGATIVE); PROTEIN,URINE NEGATIVE (NEGATIVE); UROBILINOGEN,URINE 0.2 (NORMAL) E.U./dL (NORMAL)
[2020-04-08 13:01] LABS: ALBUMIN 3.5 g/dL (3.2-5.5); ALBUMIN/GLOBULIN RATIO 1.3 (1.0-2.2); ALKALINE PHOSPHATASE 56 IU/L (42-121); ALT ALANINE AMINOTRANSFERASE 33 IU/L (10-60); AST ASPARTATE AMINOTRANSFERASE 29 IU/L (10-42); BILIRUBIN,TOTAL 0.4 mg/dL (0.2-1.0); BUN - BLOOD UREA NITROGEN 28 mg/dL (6-20); CALCIUM 8.2 mg/dL (8.5-10.3); CARBON DIOXIDE - CO2 27 mmol/L (21-32); CHLORIDE 104 mmol/L (101-111); CHOL/HDL RATIO 3.5 (<4.4); CHOLESTEROL 235 mg/dL; CREATININE 1.8 mg/dL (0.4-1.0); GLUCOSE 86 mg/dL (70-100); HDL CHOLESTEROL 68 mg/dL; LDL CHOLESTEROL,CALCULATED 127 mg/dL; LDL/HDL RATIO 1.9 (<4.4); SODIUM 141 mmol/L (135-145); TOTAL PROTEIN 6.2 g/dL (6.7-8.2); VLDL CHOLESTEROL 40 mg/dL
[2020-04-08 13:10] LABS: BACTERIA,URINE Many /HPF (None Seen); CLARITY,URINE CLOUDY (CLEAR); RBC,URINE 0-5 /HPF (0-5); SQUAMOUS EPITHELIAL CELL,UR MOD Squamous (<= Few)
[2020-04-08 13:13] LABS: T4 (THYROXINE) 6.45 ug/dL (6.09-12.23)
[2020-04-08 13:14] LABS: THYROID STIMULATING HORMONE 5.65 uIU/mL (0.34-5.60)
[2020-04-08 13:21] LABS: TOTAL T3 0.9 ng/mL (0.87-1.78)
[2020-04-08 14:05] LABS: ALBUMIN 3.5 g/dL (3.2-5.5); ALBUMIN/GLOBULIN RATIO 1.4 (1.0-2.2); BILIRUBIN,TOTAL 0.5 mg/dL (0.2-1.0); CALCIUM 8.4 mg/dL (8.5-10.3); CREATININE 1.7 mg/dL (0.4-1.0)
[2020-04-08 20:39] LABS: HEMOGLOBIN A1c% 5.8 % (4.27-6.07)
== END 2020-04-08 23:59 | disposition home or self-care (01) ==
LOC: LAB.WCP 07:50
PROVIDERS: ATTEND Family Medicine
DX: I12.9 Hypertensive chronic kidney disease with stage 1 through stage 4 chronic kidney disease, or unspecified chronic kidney disease (principal); N18.30 Chronic kidney disease, stage 3 unspecified; F32.9 Major depressive disorder, single episode, unspecified; R73.01 Impaired fasting glucose
CPT/HCPCS: 36415; 80053; 80061; 81001; 82607; 82746; 83036; 83090; 83721; 84436; 84443; 84480; 85025

== ENCOUNTER 2021-04-12 08:27 | Outpatient (CLI) | payer MEDICARE, OTHER ==
--- NOTE | 2021-04-13 11:58 | Mammography Report ---
BILATERAL DIGITAL SCREENING MAMMOGRAM 3D/2D: 04/12/2021 CLINICAL: Family history of breast cancer. Routine screening. Comparison is made to exams dated: 06/17/2019 mammogram, 04/21/2018 mammogram, 03/27/2017 mammogram, 12/29/2015 mammogram, 11/16/2014 mammogram, and 04/03/2013 mammogram - [facility]. T he tissue of both breasts is predominantly fatty. No significant masses, calcifications, or other findings are seen in either breast. There has been no significant interval change. IMPRESSION: NEGATIVE There is no mammographic evidence of malignancy. A 1 year screening mammogram is recommended. This exam was interpreted at Station ID: [id number]. NOTE: For mammograms, a report in lay terms will be sent to the patient. Approximately 15% of breast malignancies will not be visualized mammographically. In the management of a palpable breast mass, a negative mammogram must not discourage biopsy of a clinically suspicious lesion. Electronically Signed By: Wong Chao M.D., jr/ayde:04/12/2021 09:53:36 ACR BI-RADS Category 1: Negative [id number] PARENCHYMAL PATTERN: (F) - The breast(s) demonstrate(s) diffuse fatty replacement. BI-RADS CATEGORY: (1) - 1 RECOMMENDATION: (ANNUAL) - Recommend routine annual screening mammography. [id number] 1 year screening LATERALITY: (B)
== END 2021-04-12 08:28 | disposition home or self-care (01) ==
LOC: DI.N 08:27
PROVIDERS: ATTEND Internal Medicine
DX: Z12.31 Encounter for screening mammogram for malignant neoplasm of breast (principal); Z80.3 Family history of malignant neoplasm of breast

== ENCOUNTER 2021-07-04 08:00 | Outpatient (CLI) | payer MEDICARE, OTHER ==
[2021-07-04 16:22] LABS: BILIRUBIN,URINE NEGATIVE (NEGATIVE); GLUCOSE, URINE (UA) NEGATIVE (NEGATIVE); KETONES,URINE (UA) NEGATIVE (NEGATIVE); LEUKOCYTE ESTERASE, URINE NEGATIVE (NEGATIVE); NITRITE,URINE NEGATIVE (NEGATIVE); OCCULT BLOOD,URINE NEGATIVE (NEGATIVE); PROTEIN,URINE NEGATIVE (NEGATIVE); UROBILINOGEN,URINE 0.2 (NORMAL) E.U./dL (NORMAL)
[2021-07-04 16:24] LABS: CLARITY,URINE CLEAR (CLEAR)
[2021-07-04 19:03] LABS: BACTERIAL VAGINOSIS DNA NEGATIVE (NEGATIVE); CANDIDA GLABRATA DNA NEGATIVE (NEGATIVE); CANDIDA GROUP DNA NEGATIVE (NEGATIVE); CANDIDA KRUSEI DNA NEGATIVE (NEGATIVE); TRICHOMONAS VAGINALIS DNA NEGATIVE (NEGATIVE)
== END 2021-07-04 23:59 | disposition home or self-care (01) ==
LOC: LAB.R 08:00
PROVIDERS: ATTEND Internal Medicine
DX: R39.9 Unspecified symptoms and signs involving the genitourinary system (principal)
CPT/HCPCS: 81001; 81003; 87086; 87661; 87801

== ENCOUNTER 2022-01-29 11:59 | Outpatient (CLI) | payer MEDICARE, OTHER ==
--- NOTE | 2022-01-29 13:50 | XRAY Report ---
PROCEDURE: Chest 2 View X-Ray INDICATIONS: CHRONIC COUGH TECHNIQUE: 2 view(s) of the chest. COMPARISON: CXR 03/18/2020, CXR 08/02/2018. FINDINGS: Surgical changes and devices: Left shoulder arthropathy. Cholecystectomy clips. Lungs and pleura: No pleural effusions or pneumothorax. No consolidation. Diffuse interstitial prom inence is unchanged. Mediastinum: Mediastinal contours are unchanged. Heart size is normal. Bones and chest wall: No suspicious bony abnormalities. Soft tissues appear unremarkable. IMPRESSION: No consolidation. Diffuse interstitial prominence is similar. This could be due to emphysematous change or interstitial lung disease. High-resolution chest CT could be considered for further evaluation. Reviewed by: Terrance Schwartz MD on 01/29/2022 1:48 PM PDT Approved by: Terrance Schwartz MD on 01/29/2022 1:48 PM PDT Station ID: [id number]
== END 2022-01-29 12:00 | disposition home or self-care (01) ==
LOC: DI 11:59
PROVIDERS: ATTEND Internal Medicine
DX: R05.3 Chronic cough (principal); G44.321 Chronic post-traumatic headache, intractable

== ENCOUNTER 2022-02-02 13:51 | Outpatient (CLI) | payer MEDICARE, OTHER | END 2022-02-02 13:52 | disposition EMS.NT | LOC: EMS 13:51 | DX: R11.10 Vomiting, unspecified (principal); R19.7 Diarrhea, unspecified ==

== ENCOUNTER 2022-02-04 06:24 | Outpatient (CLI) | payer MEDICARE, OTHER | END 2022-02-04 06:25 | disposition critical access hospital (66) | LOC: EMS 06:24 | DX: U07.1 COVID-19 (principal); R19.7 Diarrhea, unspecified | CPT/HCPCS: A0425; A0429 ==

== ENCOUNTER 2022-02-04 06:45 | Emergency (ER) | payer MEDICARE, OTHER ==
[2022-02-04 07:24] LABS: BASOPHILS % (AUTO) 0.6 %; EOSINOPHILS # (AUTO) 0.1 10^3/uL (0.0-0.7); HCT - HEMATOCRIT 40.1 % (37.0-47.0); HGB - HEMOGLOBIN 13.1 g/dL (12.0-16.0); LYMPHOCYTES # (AUTO) 0.6 10^3/uL (1.5-3.5); LYMPHOCYTES % (AUTO) 12.4 %; MEAN CORPUSCULAR HEMOGLOBIN 30.4 pg (27.0-31.0); MEAN CORPUSCULAR HGB CONC 32.7 g/dL (32.0-36.0); MEAN PLATELET VOLUME 10.7 fL (7.9-10.8); MONOCYTES # (AUTO) 0.8 10^3/uL (0.0-1.0); MONOCYTES % (AUTO) 15.9 %; NEUTROPHILS # (AUTO) 3.5 10^3/uL (1.5-6.6); NEUTROPHILS % (AUTO) 69.5 %; PLT - PLATELET COUNT 166 10^3/uL (130-450); RED BLOOD COUNT 4.31 10^6/uL (4.20-5.40); RED CELL DISTRIBUTION WIDTH 13.6 % (12.0-15.0)
--- NOTE | 2022-02-04 07:30 | ED Physician Documentation ---
PD HPI NVD - Stated complaint Stated Complaint: C+/DIARRHEA - Chief complaint Chief Complaint: General - History obtained from History obtained from: Patient - History of Present Illness Timing - onset: How many days ago (5) Timing - duration: Days (5) Timing - details: Abrupt onset, Still present Associated symptoms: Abdominal pain (intermittent cramping diffuse, preceding diarrheal movements. Not continual pains.), Loss of appetite. No: Fever, Melena, Dizzy, Near syncope / syncope, Dysuria Contributing factors: Other (COVID positive 5 days ago, tested the day after malaise and diarrhea started.). No: Sick contact, Bad food, Recent antibiotics Improved by: No: Eating, Position Worsened by: Eating (elicits diarrhea soon after eating.). No: Position Similar symptoms before: Has not had sx before Recently seen: Clinic (discussed with PMD and opted not for Paxlovid. Just symptom meds.) Review of Systems Constitutional: reports: Fever (5-6 days ago for 2 days), Chills, Myalgias, Fatigue Nose: denies: Rhinorrhea / runny nose, Congestion Throat: reports: Sore throat Cardiac: denies: Chest pain / pressure Respiratory: reports: Cough. denies: Dyspnea GI: reports: Nausea : denies: Dysuria Neurologic: reports: Generalized weakness. denies: Near syncope, Altered mental status, Headache Endocrine: reports: Weight loss (in the past week) PD PAST MEDICAL HISTORY - Past Medical History Cardiovascular: Hypertension, High cholesterol Respiratory: Asthma Endocrine/Autoimmune: None Psych: Depression Musculoskeletal: None, Rheumatoid arthritis (has not taken usual meds for the past 5 days due to nausea/malaise. 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 - Present Medications Home Medications: Ambulatory Orders Medication Instructions Recorded Confirmed Atorvastatin [Lipitor] 10 mg PO DAILY 07/20/16 11/16/21 Hydroxychloroquine [Plaquenil] 200 mg PO BID 07/20/16 11/16/21 predniSONE [Prednisone] 5 mg PO DAILY 07/20/16 11/16/21 Leflunomide 20 mg PO QDAC 08/03/16 11/16/21 Venlafaxine HCl [Venlafaxine HCl 2 cap PO QPM 08/03/16 11/16/21 ER] Losartan/Hydrochlorothiazide 1 tab PO DAILY 08/02/18 11/16/21 [Losartan-Hctz 100-25 mg Tab] buPROPion HCL [Bupropion HCl Sr] 1 tab PO BID 08/02/18 11/16/21 predniSONE [Prednisone] 1 mg PO DAILY 01/27/20 11/16/21 Diphenoxylate/Atropine [Lomotil] 1 each PO QID PRN #16 tablet 02/04/22 Ondansetron Odt [Zofran] 4 mg TL Q6H PRN #10 tablet 02/04/22 - Allergies Allergies/Adverse Reactions: Allergies Allergy/AdvReac Type Severity Reaction Status Date / Time cephalexin Allergy Unknown Verified 02/04/22 06:54 lisinopril Allergy Unknown Verified 02/04/22 06:54 Sulfa (Sulfonamide Allergy Unknown Verified 02/04/22 06:54 Antibiotics) - Social History Does the pt smoke?: No Smoking Status: Never smoker Does the pt drink ETOH?: No Does the pt have substance abuse?: No - Immunizations Immunizations are current?: Yes - POLST Patient has POLST: No PD ED PE NORMAL - Vitals Vital signs reviewed: Yes - General General: Alert and oriented X 3, No acute distress, Well developed/nourished - HEENT HEENT: Pharynx benign. No: Moist mucous membranes - Neck Neck: Supple, no meningeal sign, No adenopathy - Cardiac Cardiac: RRR, No murmur - Respiratory Respiratory: Clear bilaterally - Abdomen Abdomen: Soft, Non distended. No: Normal bowel sounds (diminished) - Rectal Rectal: Deferred (she has watery brown mucous stool in depends, from which I got sample for testing. ) - Back Back: No CVA TTP - Derm Derm: Normal color, Warm and dry - Neuro Neuro: Alert and oriented X 3, No motor deficit, Normal speech Results - Vitals Vitals: Vital Signs - 24 hr 02/04/22 02/04/22 02/04/22 06:50 08:53 10:00 Temperature 36.1 C L Heart Rate 68 70 87 Respiratory 18 18 17 Rate Blood Pressure 169/88 H 155/82 H 147/78 H O2 Saturation 100 99 95 02/04/22 11:34 Temperature Heart Rate 75 Respiratory 17 Rate Blood Pressure 135/75 H O2 Saturation 95 Oxygen O2 Source Room air - Labs Labs: Microbiology 02/04/22 07:45 Occult Blood - Final Stool - Watery Consistency Laboratory Tests 02/04/22 02/04/22 02/04/22 07:19 07:19 07:45 WBC 5.0 RBC 4.31 Hgb 13.1 Hct 40.1 MCV 93.0 MCH 30.4 MCHC 32.7 RDW 13.6 Plt Count 166 MPV 10.7 Neut # (Auto) 3.5 Lymph # (Auto) 0.6 L [place] # (Auto) 0.8 Eos # (Auto) 0.1 Baso # (Auto) 0.0 Absolute Nucleated RBC 0.00 Nucleated RBC % 0.0 Sodium 139 Potassium 3.7 Chloride 105 Carbon Dioxide 20 L Anion Gap 14.0 H BUN 12 Creatinine 1.4 H Estimated GFR (MDRD) 37 L Glucose 93 Calcium 8.2 L Magnesium 1.8 Total Bilirubin 0.8 AST 54 H ALT 53 Alkaline Phosphatase 86 Total Protein 6.6 L Albumin 3.7 Globulin 2.9 Albumin/Globulin Ratio 1.3 Lipase 23 Stl C. diff Tox B Gene NEGATIVE PD MEDICAL DECISION MAKING - ED course Complexity details: reviewed results, re-evaluated patient (given IV fluidsa and antiemetic. Lomotil for diarrhea, and currently are awaiting stool c.diff. test results. ), considered differential (Tested positive for COVID with some cough sore throat malaise and fevers 6 days ago. Diarrhea at the time which has increased and persisted. Consider secondary process such as C. difficile.), d/w patient ED course: She is able to get up bedside with nursing. Able to sit up on around and standing. She is interacting with good alertness. Does seem to have some short-term memory deficit consistent with her dementia. No obvious source of acute infection. Presume viral type illness. Departure - Departure Disposition: 01 Home, Self Care Clinical Impression: COVID-19, Dehydration Diarrhea Qualifiers: Diarrhea type: presumed infectious Qualified Code(s): R19.7 - Diarrhea, unspecified Condition: Stable Record reviewed to determine appropriate education?: Yes Instructions: ED Diet Vomiting Diarrhea Prescriptions: Diphenoxylate/Atropine [Lomotil] 1 each PO QID PRN #16 tablet PRN Reason: Diarrhea Ondansetron Odt [Zofran] 4 mg TL Q6H PRN #10 tablet PRN Reason: Nausea / Vomiting Comments: Your basic blood count and electrolytes and kidney function are doing okay. It would seem likely that you are under hydrated and then just feeling ill from the nausea and diarrhea. We did do a stool test to look for a bacterial cause called C. difficile and that was negative. Presume a viral illness with your recent COVID causing the diarrhea. Small frequent fluids and try to have some bland foods. In particular starches such as pasta rice and breads can try to help the diarrhea as well. Ondansetron every 6 hours if needed for nausea and Lomotil every 4-6 hours if needed for diarrhea to help with symptoms. I would anticipate improvement over the next couple of days. Recheck if not improving well in that timeframe and return if worsening. I transmitted your prescriptions to [facility] pharmacy in [place]. Discharge Date/Time: 02/04/22 11:36
[2022-02-04 07:41] LABS: ALBUMIN 3.7 g/dL (3.2-5.5); ALBUMIN/GLOBULIN RATIO 1.3 (1.0-2.2); BILIRUBIN,TOTAL 0.8 mg/dL (0.2-1.0); CALCIUM 8.2 mg/dL (8.5-10.3); CREATININE 1.4 mg/dL (0.4-1.0); MAGNESIUM 1.8 mg/dL (1.7-2.8); POTASSIUM 3.7 mmol/L (3.5-5.0); TOTAL PROTEIN 6.6 g/dL (6.7-8.2)
[2022-02-04] MEDS ORDERED: SODIUM CHLORIDE 0.9% 1,000 ML IV STA (07:47)
[2022-02-04] MEDS ORDERED: FAMOTIDINE 20 MG/2 ML VIAL IVP STA (07:47)
[2022-02-04] MEDS ORDERED: ONDANSETRON 4 MG/2 ML VIAL IVP STA (07:47)
[2022-02-04] MEDS ORDERED: DIPHENOX/ATROPINE 2.5/0.025 MG TABLET PO STA (07:47)
[2022-02-04] MEDS ORDERED: KETOROLAC 15 MG/ML VIAL IVP STA (07:47)
[2022-02-04] MEDS ORDERED: DEXAMETHASONE 10 MG/ML VIAL IVP STA (08:22)
[2022-02-04] MEDS ORDERED: LACTATED RINGERS 1,000 ML IV STA (08:23)
[2022-02-04] MEDS ORDERED: PROCHLORPERAZINE 10 MG/2 ML VIAL IVP STA (09:31)
[2022-02-04] MEDS ORDERED: diphenhydrAMINE INJ 50 MG/ML VIAL IVP STA (10:28)
[2022-02-04 11:36] VITALS: BP 135/75
== END 2022-02-04 11:36 | disposition home or self-care (01) ==
LOC: EDUNIT# → ED 06:45
DX: U07.1 COVID-19 (principal); E86.0 Dehydration; R19.7 Diarrhea, unspecified; I10 Essential (primary) hypertension
CPT/HCPCS: 36415; 80053; 82272; 83690; 83735; 85025; 87493; 96361; 96374; 96375; 99282; 99284; A9270; J1200; J7120

== ENCOUNTER 2022-02-22 09:04 | Outpatient (CLI) | payer MEDICARE, OTHER ==
--- NOTE | 2022-02-22 12:28 | CT Report ---
PROCEDURE: HEAD WO INDICATIONS: CHRONIC HEADACHE TECHNIQUE: Noncontrast 4.5 mm thick angled axial sections acquired from the foramen magnum to the vertex. For r adiation dose reduction, the following was used: automated exposure control, adjustment of mA and/or kV according to patient size. COMPARISON: 08/02/2018 FINDINGS: Image quality: Excellent. CSF spaces: Basal cisterns are patent. No extra-axial fluid collections. Ventricles are normal in size and shape. Brain: No midline shift. No intracranial masses or hemorrhage. Xavier-white matter interface is norm al. Age-appropriate brain parenchymal volume loss and chronic small vessel ischemic change can be se en. Skull and face: Calvarium and visualized facial bones are intact, without suspicious lesions. Sinuses: Visualized sinuses and mastoids are clear. IMPRESSION: Unremarkable noncontrast head CT for age, stable from prior. No cause of headache is identified. Reviewed by: Nelson Araujo MD on 02/22/2022 11:27 AM BK Approved by: Nelson Araujo MD on 02/22/2022 11:27 AM BK Station ID: [id number]
== END 2022-02-22 09:05 | disposition home or self-care (01) ==
LOC: DI 09:04
PROVIDERS: ATTEND Internal Medicine
DX: R05.3 Chronic cough (principal); G44.321 Chronic post-traumatic headache, intractable

== ENCOUNTER 2022-06-12 11:11 | Outpatient (CLI) | payer MEDICARE, OTHER ==
[2022-06-12 11:29] LABS: BASOPHILS # (AUTO) 0.1 10^3/uL (0.0-0.1); BASOPHILS % (AUTO) 0.9 %; EOSINOPHILS # (AUTO) 0.2 10^3/uL (0.0-0.7); EOSINOPHILS % (AUTO) 2.5 %; HCT - HEMATOCRIT 41.1 % (37.0-47.0); HGB - HEMOGLOBIN 12.9 g/dL (12.0-16.0); LYMPHOCYTES # (AUTO) 1.6 10^3/uL (1.5-3.5); LYMPHOCYTES % (AUTO) 24.8 %; MEAN CORPUSCULAR HEMOGLOBIN 29.3 pg (27.0-31.0); MEAN CORPUSCULAR HGB CONC 31.4 g/dL (32.0-36.0); MEAN CORPUSCULAR VOLUME 93.2 fL (81.0-99.0); MEAN PLATELET VOLUME 10.4 fL (7.9-10.8); MONOCYTES # (AUTO) 0.6 10^3/uL (0.0-1.0); NEUTROPHILS % (AUTO) 62.5 %; PLT - PLATELET COUNT 179 10^3/uL (130-450); RED BLOOD COUNT 4.41 10^6/uL (4.20-5.40); RED CELL DISTRIBUTION WIDTH 13.6 % (12.0-15.0); WHITE BLOOD COUNT 6.4 x10^3/uL (4.8-10.8)
[2022-06-12 17:32] LABS: ALBUMIN 3.7 g/dL (3.2-5.5); ALBUMIN/GLOBULIN RATIO 1.4 (1.0-2.2); ALKALINE PHOSPHATASE 50 IU/L (42-121); ALT ALANINE AMINOTRANSFERASE 18 IU/L (10-60); AST ASPARTATE AMINOTRANSFERASE 23 IU/L (10-42); BILIRUBIN,TOTAL 0.7 mg/dL (0.2-1.0); BUN - BLOOD UREA NITROGEN 28 mg/dL (6-20); CALCIUM 10.1 mg/dL (8.5-10.3); CARBON DIOXIDE - CO2 27 mmol/L (21-32); CHLORIDE 101 mmol/L (101-111); CREATININE 1.4 mg/dL (0.4-1.0); GFR - MDRD 37 (>89); GLUCOSE 81 mg/dL (70-100); SODIUM 142 mmol/L (135-145); TOTAL PROTEIN 6.4 g/dL (6.7-8.2)
[2022-06-12 17:50] LABS: CRP - C-REACTIVE PROTEIN < 1.0 mg/dL (0-1.0)
== END 2022-06-12 11:12 | disposition home or self-care (01) ==
LOC: LAB 11:11
PROVIDERS: ATTEND Internal Medicine Rheumatology
DX: M05.79 Rheumatoid arthritis with rheumatoid factor of multiple sites without organ or systems involvement (principal); Z79.899 Other long term (current) drug therapy
CPT/HCPCS: 36415; 80053; 85025; 85651; 86140

== ENCOUNTER 2022-07-03 10:10 | Outpatient (CLI) | payer MEDICARE, OTHER ==
--- NOTE | 2022-07-03 16:55 | MRI Report ---
PROCEDURE: SHOULDER WO - RT INDICATIONS: SHOULDER PAIN TECHNIQUE: Noncontrast oblique coronal T2 fast spin echo with fat saturation, oblique sagittal T1 spin echo and T2 fast spin echo with fat saturation, axial T1 spin echo and T2 fast spin echo with fat saturation t hrough the shoulder. COMPARISON: None. FINDINGS: Image quality: Excellent. Rotator cuff: There is full-thickness tearing of the entire supraspinatus and infraspinatus tendons a t the humeral insertion sites with medial retraction and atrophy. There is full-thickness tearing of the mid subscapularis tendon at the humeral insertion site. Teres minor is intact. Bones and bursae: No bone marrow contusions or fractures. Resection at the, clavicular interval has occurred. There is metallic artifact surrounding the distal acromion on. No pathologic subacromial/coulter bdeltoid bursal fluid is present. Capsule and soft tissues: Diffuse glenoid labral tearing is present. Biceps tendon is dislocated medi ally and demonstrates high-grade tearing. The rotator interval appears normal, without fibrosis. The coracohumeral ligament is normal in thickness. IMPRESSION: 1. Full-thickness tearing of the subscapularis, supraspinatus, and infraspinatus tendons as described above. 2. Postsurgical sequelae. 3. Glenoid labral tearing. 4. Biceps tendon dislocation and tearing. Reviewed by: Sara Hernandez MD on 07/03/2022 4:53 PM PST Approved by: Sara Hernandez MD on 07/03/2022 4:53 PM PST Station ID: [id number]
== END 2022-07-03 10:11 | disposition home or self-care (01) ==
LOC: DI 10:10
PROVIDERS: ATTEND Internal Medicine
DX: S46.021A Laceration of muscle(s) and tendon(s) of the rotator cuff of right shoulder, initial encounter (principal); S43.431A Superior glenoid labrum lesion of right shoulder, initial encounter; S46.221A Laceration of muscle, fascia and tendon of other parts of biceps, right arm, initial encounter

== ENCOUNTER 2022-08-31 10:59 | Outpatient (CLI) | payer MEDICARE, OTHER ==
[2022-08-31 11:12] LABS: BASOPHILS % (AUTO) 0.5 %; EOSINOPHILS # (AUTO) 0.1 10^3/uL (0.0-0.7); EOSINOPHILS % (AUTO) 1.7 %; HCT - HEMATOCRIT 41.1 % (37.0-47.0); HGB - HEMOGLOBIN 12.7 g/dL (12.0-16.0); LYMPHOCYTES % (AUTO) 12.2 %; MEAN CORPUSCULAR HEMOGLOBIN 29.6 pg (27.0-31.0); MEAN CORPUSCULAR HGB CONC 30.9 g/dL (32.0-36.0); MEAN CORPUSCULAR VOLUME 95.8 fL (81.0-99.0); MEAN PLATELET VOLUME 10.8 fL (7.9-10.8); MONOCYTES # (AUTO) 0.7 10^3/uL (0.0-1.0); MONOCYTES % (AUTO) 8.9 %; NEUTROPHILS % (AUTO) 76.3 %; PLT - PLATELET COUNT 197 10^3/uL (130-450); RED BLOOD COUNT 4.29 10^6/uL (4.20-5.40); RED CELL DISTRIBUTION WIDTH 13.7 % (12.0-15.0); WHITE BLOOD COUNT 7.8 x10^3/uL (4.8-10.8)
[2022-08-31 11:29] LABS: ALBUMIN/GLOBULIN RATIO 1.6 (1.0-2.2); ALKALINE PHOSPHATASE 100 IU/L (42-121); ALT ALANINE AMINOTRANSFERASE 19 IU/L (10-60); AST ASPARTATE AMINOTRANSFERASE 18 IU/L (10-42); BILIRUBIN,TOTAL 0.5 mg/dL (0.2-1.0); BUN - BLOOD UREA NITROGEN 26 mg/dL (6-20); CALCIUM 8.7 mg/dL (8.5-10.3); CARBON DIOXIDE - CO2 28 mmol/L (21-32); CHLORIDE 100 mmol/L (101-111); CREATININE 1.5 mg/dL (0.4-1.0); GFR - MDRD 34 (>89); GLUCOSE 90 mg/dL (70-100); POTASSIUM 4.1 mmol/L (3.5-5.0); SODIUM 137 mmol/L (135-145); TOTAL PROTEIN 6.5 g/dL (6.7-8.2)
[2022-08-31 11:31] LABS: CRP - C-REACTIVE PROTEIN < 1.0 mg/dL (0-1.0)
== END 2022-08-31 11:00 | disposition home or self-care (01) ==
LOC: LAB 10:59
PROVIDERS: ATTEND Internal Medicine Rheumatology
DX: M05.79 Rheumatoid arthritis with rheumatoid factor of multiple sites without organ or systems involvement (principal); Z79.899 Other long term (current) drug therapy
CPT/HCPCS: 36415; 80053; 85025; 85651; 86140

== ENCOUNTER 2022-09-10 09:32 | Outpatient (CLI) | payer MEDICARE, OTHER ==
[2022-09-10 09:48] LABS: BASOPHILS % (AUTO) 0.7 %; EOSINOPHILS # (AUTO) 0.2 10^3/uL (0.0-0.7); EOSINOPHILS % (AUTO) 3.3 %; HCT - HEMATOCRIT 39.7 % (37.0-47.0); HGB - HEMOGLOBIN 12.3 g/dL (12.0-16.0); LYMPHOCYTES # (AUTO) 1.5 10^3/uL (1.5-3.5); LYMPHOCYTES % (AUTO) 25.2 %; MEAN CORPUSCULAR HEMOGLOBIN 29.2 pg (27.0-31.0); MEAN CORPUSCULAR VOLUME 94.3 fL (81.0-99.0); MONOCYTES # (AUTO) 0.6 10^3/uL (0.0-1.0); MONOCYTES % (AUTO) 10.1 %; NEUTROPHILS # (AUTO) 3.5 10^3/uL (1.5-6.6); NEUTROPHILS % (AUTO) 60.4 %; PLT - PLATELET COUNT 170 10^3/uL (130-450); RED BLOOD COUNT 4.21 10^6/uL (4.20-5.40); RED CELL DISTRIBUTION WIDTH 13.2 % (12.0-15.0); WHITE BLOOD COUNT 5.8 x10^3/uL (4.8-10.8)
[2022-09-10 10:02] LABS: ALBUMIN 3.9 g/dL (3.2-5.5); CALCIUM 8.9 mg/dL (8.5-10.3); CREATININE 1.4 mg/dL (0.4-1.0); PHOSPHORUS 3.7 mg/dL (2.5-4.6); POTASSIUM 4.1 mmol/L (3.5-5.0)
== END 2022-09-10 09:33 | disposition home or self-care (01) ==
LOC: LAB 09:32
PROVIDERS: ATTEND Internal Medicine Nephrology
DX: N18.32 Chronic kidney disease, stage 3b (principal)
CPT/HCPCS: 36415; 80069; 82306; 83970; 85025

== ENCOUNTER 2022-09-21 13:13 | Outpatient (CLI) | payer MEDICARE, OTHER ==
--- NOTE | 2022-09-21 14:04 | XRAY Report ---
PROCEDURE: Wrist 4 View BILAT INDICATIONS: BILAT XR TECHNIQUE: 4 views of the wrist were acquired. COMPARISON: None. FINDINGS: Bones: No fractures or dislocations. Severe degenerative change at the wrists. Height loss at the t rapeziums. No suspicious bony lesions. Scaphoid view: Intact. Soft tissues: No suspicious soft tissue calcifications or masses. Arteriovascular calcifications. IMPRESSION: Severe degenerative changes at the wrist. Reviewed by: Terrance Schwartz MD on 09/21/2022 2:02 PM PDT Approved by: Terrance Schwartz MD on 09/21/2022 2:02 PM PDT Station ID: [id number]
== END 2022-09-21 13:14 | disposition home or self-care (01) ==
LOC: DI 13:13
PROVIDERS: ATTEND Internal Medicine Rheumatology
DX: M19.031 Primary osteoarthritis, right wrist (principal); M19.032 Primary osteoarthritis, left wrist

== ENCOUNTER 2022-10-31 10:11 | Outpatient (CLI) | payer MEDICARE, OTHER ==
--- NOTE | 2022-11-01 09:26 | Mammography Report ---
BILATERAL DIGITAL SCREENING MAMMOGRAM 3D/2D: 10/31/2022 CLINICAL: Routine screening. Comparison is made to exams dated: 04/12/2021 mammogram, 06/17/2019 mammogram, 04/21/2018 mammogram, 1 05/27/2016 mammogram, 12/29/2015 mammogram, and 11/16/2014 mammogram - [facility]. Both breasts are almost entirely fatty (category a/<25% glandular tissue). No significant masses, calcifications, or other findings are seen in either breast. There has been no significant interval change. IMPRESSION: NEGATIVE There is no mammographic evidence of malignancy. A 1 year screening mammogram is recommended. Based on the Tyrer Cuzick model (a risk assessment model) the patients lifetime risk is 5.8% and her 10 year risk is 4.7%. According to the ACR, ACS, and NCCN guidelines, an annual breast MRI exam karine g with mammogram is recommended if the patients lifetime risk is 20% or greater. This exam was interpreted at Station ID: [id number]. NOTE: For mammograms, a report in lay terms will be sent to the patient. Approximately 15% of breast malignancies will not be visualized mammographically. In the management of a palpable breast mass, a negative mammogram must not discourage biopsy of a clinically suspicious lesion. Electronically Signed By: Azar best/ayde:10/31/2022 10:49:50 letter sent: No_Letter ACR BI-RADS Category 1: Negative 3341F PARENCHYMAL PATTERN: (F) - The breast(s) demonstrate(s) diffuse fatty replacement. BI-RADS CATEGORY: (1) - 1 Mammogram [id number] 1 year screening LATERALITY: (B)
== END 2022-10-31 10:12 | disposition home or self-care (01) ==
LOC: DI.N 10:11
DX: Z12.31 Encounter for screening mammogram for malignant neoplasm of breast (principal)

== ENCOUNTER 2023-02-01 08:22 | Outpatient (CLI) | payer MEDICARE, OTHER ==
--- NOTE | 2023-02-01 14:53 | DEXA Report ---
PROCEDURE: Dexa Spine and/or Hip INDICATIONS: OSTEOPOROSIS TECHNIQUE: Dual energy x-ray absorptiometry (DXA) was performed on a [employer] System. Regions measur ed are the AP Spine, femoral neck, and if needed forearm. COMPARISON: 06/28/2017 FINDINGS: Lumbar Spine: Bone Mineral Density 1.58 g/cm/cm,T score 3.4. Spine was not previously assessed Left Femoral Neck: Bone Mineral Density 0.65 g/cm/cm, T score -2.8. Previously -2.5 Left Hip: Bone Mineral Density 0.87 g/cm/cm,T score -1.1. Previously -1.2 (T score greater or equal to -1.0: NORMAL) (T score from -1.1 to -2.4: OSTEOPENIA) (T score less than or equal to -2.5 to: OSTEOPOROSIS) Impression: By WHO criteria, this patient has osteoporosis. No significant change in left femoral neck and hip stefanie ne mineral density compared to 2018. Patients with diagnosis of osteoporosis or osteopenia should have regular bone mineral density assess ment. For those eligible for Medicare, routine testing is allowed once every 2 years. Testing frequ ency can be increased for patients who have rapidly progressing disease or for those who are receivin g medical therapy to restore bone mass. Reviewed by: Felix Mullins MD on 02/01/2023 2:51 PM PDT Approved by: Felix Mullins MD on 02/01/2023 2:51 PM PDT Station ID: [id number]
== END 2023-02-01 08:23 | disposition home or self-care (01) ==
LOC: DI 08:22
PROVIDERS: ATTEND Internal Medicine Rheumatology
DX: M81.0 Age-related osteoporosis without current pathological fracture (principal)

== ENCOUNTER 2023-03-02 12:19 | Emergency (ER) | payer MEDICARE, OTHER ==
[2023-03-02] MEDS ORDERED: oxyCODONE 5 MG TABLET PO STA ×2 (13:10→14:00)
--- NOTE | 2023-03-02 13:21 | XRAY Report ---
PROCEDURE: Shoulder 3 View RT INDICATIONS: Injury TECHNIQUE: 4 views of the shoulder were acquired. COMPARISON: None. FINDINGS: Bones: Reverse total shoulder prosthesis. No fractures or dislocations. No suspicious bony lesions. Visualized ribs appear intact. Widening of the acromioclavicular joint, likely postsurgical Soft tissues: No suspicious soft tissue calcifications. The visualized lungs are within normal limi ts. IMPRESSION: Widening of the acromioclavicular joint, correlate with surgical history. Total shoulder prosthesis without evidence of hardware complication. Reviewed by: Zi Chao MD on 03/02/2023 12:20 PM BK Approved by: Zi Chao MD on 03/02/2023 12:20 PM AKDT Station ID: [id number]
--- NOTE | 2023-03-02 13:31 | ED Physician Documentation ---
History of Present Illness - Stated complaint Stated Complaint: RT SHOULDER PX - Chief complaint Chief Complaint: Ext Problem - History obtained from History obtained from: Patient - History of Present Illness Timing: Today Pain level max: 10 Pain level now: 10 - Additonal information Additional information: 72-year-old female states that she is status post a reverse shoulder arthroplasty on November 09, 2022 at the [facility]. Today she was reaching her arm above her head when she felt a pop and had immediate pain in the shoulder. She called her orthopedist at the [facility] who referred her here for evaluation. Patient has no numbness, tingling. No deformity. She is wearing a sling which is helping with the pain. 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 - Present Medications Home Medications: Ambulatory Orders Medication Instructions Recorded Confirmed Atorvastatin [Lipitor] 10 mg PO DAILY 07/20/16 11/22/22 Hydroxychloroquine [Plaquenil] 200 mg PO BID 07/20/16 11/22/22 predniSONE [Prednisone] 5 mg PO DAILY 07/20/16 11/22/22 Leflunomide 20 mg PO QDAC 08/03/16 11/22/22 Venlafaxine HCl [Venlafaxine HCl 2 cap PO QPM 08/03/16 11/22/22 ER] Losartan/Hydrochlorothiazide 1 tab PO DAILY 08/02/18 11/22/22 [Losartan-Hctz 100-25 mg Tab] buPROPion HCL [Bupropion HCl Sr] 1 tab PO BID 08/02/18 11/22/22 Diphenoxylate/Atropine [Lomotil] 1 each PO QID PRN #16 tablet 02/04/22 11/22/22 oxyCODONE [Roxicodone] 5 - 10 mg PO Q6H PRN #20 tablet 03/02/23 MDD 6 - Allergies Allergies/Adverse Reactions: Allergies Allergy/AdvReac Type Severity Reaction Status Date / Time cephalexin Allergy Unknown Verified 05/17/22 15:04 lisinopril Allergy Unknown Verified 05/17/22 15:04 Sulfa (Sulfonamide Allergy Unknown Verified 05/17/22 15:04 Antibiotics) - Social History Does the pt smoke?: No Smoking Status: Never smoker Does the pt drink ETOH?: No Does the pt have substance abuse?: No - Immunizations Immunizations are current?: Yes - POLST Patient has POLST: No PD ED PE NORMAL - Vitals Vital signs reviewed: Yes - General General: Alert and oriented X 3, No acute distress - HEENT HEENT: Moist mucous membranes - Neck Neck: Supple, no meningeal sign, No bony TTP - Cardiac Cardiac: RRR, Strong equal pulses - Respiratory Respiratory: No respiratory distress, Clear bilaterally - Derm Derm: Warm and dry - Extremities Extremities: Other (R shoulder - Well-healed incision, no signs of infection. No gross deformity. Limited range of motion secondary to pain. Most of the pain is located in the posterior glenohumeral joint. There is tenderness over this area as well. No swelling. Neurovascular intact including the axillary nerve.) - Neuro Neuro: Alert and oriented X 3 - Psych Psych: Normal mood, Normal affect Results - Vitals Vitals: Vital Signs - 24 hr 03/02/23 12:48 Temperature 36.6 C Heart Rate 93 Respiratory 20 Rate Blood Pressure 161/77 H O2 Saturation 96 Oxygen O2 Source Room air - Rads (name of study) Right shoulder x-ray Relevant Findings:: Final report received, See rad report PD Medical Decision Making - ED course Complexity details: reviewed results, re-evaluated patient, considered differential, d/w patient, d/w family ED course: Patient with right shoulder pain, unclear etiology, suspect soft tissue secondary to moving her arm above her head today. Neurovascular intact. Pain improved with oxycodone, but she is still having pain. Will prescribe pain medication for home. No acute findings on x-ray. We did discuss contacting [facility], but given her normal x-ray, doubt there would be an acute intervention. She will contact them on Saturday. Patient has a sling and we will leave her in this until she sees her doctor. Patient counseled regarding signs and symptoms for which I believe and urgent re-evaluation would be necessary. Patient with good understanding of and agreement to plan and is comfortable going home at this time This document was made in part using voice recognition software. While efforts are made to proofread this document, sound alike and grammatical errors may occur. Departure - Departure Disposition: 01 Home, Self Care Clinical Impression: Shoulder pain, acute Qualifiers: Laterality: right Qualified Code(s): M25.511 - Pain in right shoulder Condition: Good Instructions: ED Shoulder Pain [facility]O Follow-Up: Merlyn Meyer MD [Primary Care Provider] - Within 1 week Prescriptions: oxyCODONE [Roxicodone] 5 - 10 mg PO Q6H PRN #20 tablet MDD 6 PRN Reason: pain Comments: Your prescription was sent to [facility] in [place]. Your x-ray does not show any acute abnormalities today. I would recommend that you contact orthopedics on Saturday for a follow-up. This is likely a soft tissue injury and should improve over the next few days. I would wear the sling at home as well. I am prescribing a short course of narcotic pain medication for you. These are potentially dangerous and addictive medications that should be used carefully. These medications may constipate you. Take an [id number]-[id number]-[id number] stool softener (docusate) twice daily with plenty of water while taking these medications. If you go 24 hours without a bowel movement, take [id number] miralax, per package instructions. Do not drink or drive while taking these medications. If you received narcotic or sedating medications while in the emergency department, do not drive for 24 hours. Store this medication in a safe, secure place and out of reach of children. It is a violation of federal law to give or sell this medication to another person or to use in a manner other than prescribed. The ED will not refill narcotic prescriptions, including prescriptions lost or stolen. To dispose of unwanted medications: 1. [facility] [address] in [place] has a medication drop box. They accept prescription medications (in pill form) Saturday through Saturday 9:00 a.m. to 5:00 p.m. 2. [facility] [employer] [facility] accepts prescription medications (in pill form only) for disposal year round. Call for more information. 3. Contact the [facility] for the next [facility] sponsored prescription drug collection event. , [phone], or [phone]; Forms: PCP List
[2023-03-02 14:12] VITALS: BP 158/80; O2SAT 97
== END 2023-03-02 14:12 | disposition home or self-care (01) ==
LOC: ED 12:19
DX: M25.511 Pain in right shoulder (principal)
CPT/HCPCS: 73030; 99283; A9270

== ENCOUNTER 2023-03-08 08:54 | Emergency (ER) | payer MEDICARE, OTHER ==
[2023-03-08 09:05] VITALS: BP 126/56
--- NOTE | 2023-03-08 09:15 | ED Physician Documentation ---
PD HPI CHEST PAIN - Stated complaint Stated Complaint: SOA,NAUSEA,CHEST PX - Chief complaint Chief Complaint: Cardiac - History obtained from History obtained from: Patient - History of Present Illness Timing - onset: How many days ago (3) Timing - details: Intermittant (initially just few minutes at a time. More consistent last evening and increased severity this morning. No prior heart problems.) Review of Systems Constitutional: denies: Fever, Chills Nose: denies: Rhinorrhea / runny nose, Congestion Throat: denies: Sore throat Cardiac: denies: Pedal edema, Calf pain Respiratory: denies: Cough GI: reports: Nausea. denies: Abdominal Pain, Vomiting, Diarrhea Neurologic: reports: Generalized weakness. denies: Difficulty speaking, Headache PD PAST MEDICAL HISTORY - Past Medical History Cardiovascular: Hypertension, High cholesterol Respiratory: Asthma Neuro: None Endocrine/Autoimmune: None Psych: Depression Musculoskeletal: None, Rheumatoid arthritis, Other (Recent fall with shoulder injury and the arm is in a sling. 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 - Present Medications Home Medications: Ambulatory Orders Medication Instructions Recorded Confirmed Atorvastatin [Lipitor] 10 mg PO DAILY 07/20/16 11/22/22 Hydroxychloroquine [Plaquenil] 200 mg PO BID 07/20/16 11/22/22 predniSONE [Prednisone] 5 mg PO DAILY 07/20/16 11/22/22 Leflunomide 20 mg PO QDAC 08/03/16 11/22/22 Venlafaxine HCl [Venlafaxine HCl 2 cap PO QPM 08/03/16 11/22/22 ER] Losartan/Hydrochlorothiazide 1 tab PO DAILY 08/02/18 11/22/22 [Losartan-Hctz 100-25 mg Tab] buPROPion HCL [Bupropion HCl Sr] 1 tab PO BID 08/02/18 11/22/22 Diphenoxylate/Atropine [Lomotil] 1 each PO QID PRN #16 tablet 02/04/22 11/22/22 Oxycodone HCl/Acetaminophen 1 - 2 each PO Q6H PRN #20 tablet 03/02/23 [Percocet 5-325 mg Tablet] MDD 6 tabs - Allergies Allergies/Adverse Reactions: Allergies Allergy/AdvReac Type Severity Reaction Status Date / Time cephalexin Allergy Unknown Verified 03/08/23 09:05 lisinopril Allergy Hives Verified 03/08/23 09:05 Sulfa (Sulfonamide Allergy Unknown Verified 03/08/23 09:05 Antibiotics) - Social History Does the pt smoke?: No Smoking Status: Never smoker Does the pt drink ETOH?: No Does the pt have substance abuse?: No - Immunizations Immunizations are current?: Yes - POLST Patient has POLST: No PD ED PE NORMAL - Vitals Vital signs reviewed: Yes - General General: Alert and oriented X 3, Well developed/nourished, Other (appears uncomfortable) - HEENT HEENT: Pharynx benign, Other (left old periorbital ecchymosis yellow/green from 4 weeks ago. ) - Neck Neck: Supple, no meningeal sign, No adenopathy - Cardiac Cardiac: RRR, No murmur - Respiratory Respiratory: No respiratory distress, Clear bilaterally - Abdomen Abdomen: Soft, Non tender - Derm Derm: Normal color, Warm and dry - Extremities Extremities: No edema, No calf tenderness / cord - Neuro Neuro: Alert and oriented X 3, No motor deficit, Normal speech Results - Vitals Vitals: Vital Signs - 24 hr 03/08/23 08:59 Temperature 36.5 C Heart Rate 86 Respiratory 18 Rate Blood Pressure 126/56 L Oxygen O2 Source Room air - EKG (time done) 09:10 EKG releavant findings:: EKG personally interpreted by author of this note. Relevant findings are: Rate: Rate (enter#) Rhythm: NSR (82) Beggs: Normal Intervals: Normal AL QRS: Normal Ischemia: ST elevation c/w ischemia (inferior leads significant ST elevation.) Compare to prior EKG: Old EKG unavailable - Rads (name of study) chest xray Relevant Findings:: Prelim report reviewed, EMP independent interpretation of test (some vascular congestion. No infiltrates, effusino, PTX. ) PD Medical Decision Making - ED course Complexity details: considered differential (The patient has 3 days of intermittent chest pain progressing to more consistent pain last night and worse this morning. It is substernal. Some pleuritic component. No coughing or URI symptoms. No leg edema. No history of heart problems.), d/w patient, d/w marketing operations consultant (Spoke with Dr. King the emergency physician at [facility] [place] who accepts transfer of the patient based on STEMI criteria.) ED course: The patient was seen by triage nurse with an EKG done in triage. This was brought to my attention promptly after completion with showing ST elevations in the inferior leads and some nonspecific T waves and ST changes anterior. I interviewed the patient briefly about her history and symptoms and the symptoms are consistent with a crescendo angina and now acute ND. We will treat it as an ST elevation ND. The STEMI order set was initiated with a combination of aspirin 324 mg, Plavix 3 00 mg, heparin per cardiac protocol as well as atorvastatin morphine and nitroglycerin for symptoms. It is an inferior ND and at this point I would hold off on beta-blockers for now. Reassess heart rate momentarily. We did activate the STEMI protocol and the patient will go by [facility] to [facility]. The chest x-ray does not show any acute abnormality to account for the pain. Some mild vascular congestion. No pneumothorax no effusions no infiltrates. At this point labs drawn were CBC, chemistry panel, troponin and BNP. The results are not yet back. The patient will be transferred promptly without awaiting these. A COVID test was also obtained and results are pending as well. - Critical Care Time(min): 35 Time Includes: Direct patient care, Reassess patient, Document care, Coordinate care Data interpretation: Labs, Pulse ox, CXR, See progress note Procedures excluded from critical care time: EKG Departure - Departure Disposition: 02 Transfer Acute Care Hosp Clinical Impression: Chest pain, ST elevation myocardial infarction (STEMI) of inferior wall Condition: Stable Forms: PCP List
[2023-03-08] MEDS ORDERED: ASPIRIN CHEW 81 MG TABLET PO STA (09:22)
[2023-03-08] MEDS ORDERED: MORPHINE 2 MG/ML CARPUJECT IVP STA (09:22)
[2023-03-08] MEDS ORDERED: ATORVASTATIN 40 MG TABLET PO STA (09:23)
[2023-03-08] MEDS ORDERED: CLOPIDOGREL 300 MG TABLET PO ONE (09:23)
[2023-03-08 09:28] LABS: BASOPHILS % (AUTO) 0.4 %; HGB - HEMOGLOBIN 12.4 g/dL (12.0-16.0); LYMPHOCYTES # (AUTO) 0.5 10^3/uL (1.5-3.5); LYMPHOCYTES % (AUTO) 4.7 %; MEAN CORPUSCULAR HGB CONC 33.5 g/dL (32.0-36.0); MEAN CORPUSCULAR VOLUME 89.4 fL (81.0-99.0); MEAN PLATELET VOLUME 10.6 fL (7.9-10.8); MONOCYTES # (AUTO) 1.3 10^3/uL (0.0-1.0); MONOCYTES % (AUTO) 11.3 %; NEUTROPHILS # (AUTO) 9.4 10^3/uL (1.5-6.6); NEUTROPHILS % (AUTO) 83.2 %; PLT - PLATELET COUNT 160 10^3/uL (130-450); RED BLOOD COUNT 4.14 10^6/uL (4.20-5.40); RED CELL DISTRIBUTION WIDTH 13.2 % (12.0-15.0); WHITE BLOOD COUNT 11.3 x10^3/uL (4.8-10.8)
[2023-03-08] MEDS: NITROGLYCERIN SL 0.4 MG TABLET SL STA ×2 (09:38→09:42)
--- NOTE | 2023-03-08 09:45 | XRAY Report ---
PROCEDURE: Chest 1 View X-Ray INDICATIONS: Chest Pain TECHNIQUE: One view of the chest was acquired. COMPARISON: 2 views of the chest dated 01/29/2022. FINDINGS: Surgical changes and devices: Bilateral shoulder arthroplasties are noted. Lungs and pleura: No pleural effusions or pneumothorax. Lung volumes are low. Mild atelectasis is pr esent at the left lung base. Mediastinum: Mediastinal contours appear normal. Heart size is normal. Bones and chest wall: No suspicious bony lesions. Overlying soft tissues appear unremarkable. IMPRESSION: Low lung volumes and left basilar atelectasis. Reviewed by: Hannah Patterson MD on 03/08/2023 9:44 AM PDT Approved by: Hannah Patterson MD on 03/08/2023 9:44 AM PDT Station ID: [id number]
[2023-03-08 09:46] LABS: ALBUMIN/GLOBULIN RATIO 1.5 (1.0-2.2); ALKALINE PHOSPHATASE 151 IU/L (42-121); ALT ALANINE AMINOTRANSFERASE 67 IU/L (10-60); AST ASPARTATE AMINOTRANSFERASE 161 IU/L (10-42); BILIRUBIN,TOTAL 0.8 mg/dL (0.2-1.0); BUN - BLOOD UREA NITROGEN 20 mg/dL (6-20); CALCIUM 10.3 mg/dL (8.5-10.3); CARBON DIOXIDE - CO2 30 mmol/L (21-32); CHLORIDE 92 mmol/L (101-111); CREATININE 1.4 mg/dL (0.6-1.3); GFR - MDRD 37 (>89); GLUCOSE 105 mg/dL (74-104); LIPASE < 10 U/L (11-82); SODIUM 129 mmol/L (135-145); TOTAL PROTEIN 6.7 g/dL (6.4-8.9)
[2023-03-08 09:54] VITALS: O2SAT 100
[2023-03-08] MEDS ORDERED: HEPARIN 25000UNITS/500ML (D5W) 25,000 UNIT/500 ML BAG IV SCH (10:00)
== END 2023-03-08 09:56 | disposition short-term general hospital (02) ==
LOC: ED 08:54
DX: I21.19 ST elevation (STEMI) myocardial infarction involving other coronary artery of inferior wall (principal); I10 Essential (primary) hypertension; E78.00 Pure hypercholesterolemia, unspecified; Z79.899 Other long term (current) drug therapy
CPT/HCPCS: 36415; 71045; 80053; 83690; 83735; 83880; 84484; 85025; 93005; 96374; 99285; 99291; A9270

== ENCOUNTER 2023-11-29 14:17 | Outpatient (CLI) | payer MEDICARE, OTHER ==
--- NOTE | 2023-11-30 19:54 | XRAY Report ---
PROCEDURE: Hips w/Pelvis 2-3V BL INDICATIONS: HIP PAIN, SCIATICA TECHNIQUE: 2 view(s) of the hip were acquired. COMPARISON: None FINDINGS: Bones: Convex osteopenia and sclerotic vascular calcification noted in the proximal femoral vasculatu re. Lower lumbar spine interbody fusion mild bilateral hip joint space narrowing without significant osteophyte Soft tissues: No suspicious soft tissue calcifications or masses. IMPRESSION: Mild hip joint space narrowing without remodeling. Advanced diffuse calcific atheroscler osis Reviewed by: Rodger Wright MD on 11/30/2023 6:53 PM AKDT Approved by: Rodger Wright MD on 11/30/2023 6:53 PM AKDT Station ID: [id number]
== END 2023-11-29 14:18 | disposition home or self-care (01) ==
LOC: DI 14:17
PROVIDERS: ATTEND Internal Medicine
DX: I70.202 Unspecified atherosclerosis of native arteries of extremities, left leg (principal); I70.201 Unspecified atherosclerosis of native arteries of extremities, right leg; M25.852 Other specified joint disorders, left hip; M25.851 Other specified joint disorders, right hip

== ENCOUNTER 2023-12-18 06:54 | Outpatient (CLI) | payer MEDICARE, OTHER ==
--- NOTE | 2023-12-18 18:53 | MRI Report ---
Knee LT WO CLINICAL INFORMATION: 73 years of age, Female, L KNEE PAIN. COMPARISON: None Technique: Multisequence, multiplanar MRI of the left knee was performed without intravenous contrast . FINDINGS: Status post total knee arthroplasty, creating artifacts and limits evaluation. MCL/LCL: The MCL is unremarkable. The biceps femoris tendon is unremarkable. Prior sprain of the pro ximal fibular collateral ligament.The iliotibial band is intact. The popliteal muscle and tendon is n ot well evaluated. Extensor mechanism: High-grade tear of the distal quadricep tendon. Numerable ossifications superior to the patella pole, likely representing prior injury. No retraction of the distal quadricep tendon. Low-grade tear of the proximal patellar tendon. In addition, there is large area of cystic changes wi thin the patella tendon, measuring 7 mm on short axis, and extending through the near entire length o f the patella tendon. There is a 1.8 cm ossification in the Hoffa's fat pad. Patellofemoral joint: Alignment within the patellofemoral joint is normal. The patellofemoral ligame nts are grossly intact Cartilage and bone: No acute fracture. No definitive marrow edema. Miscellaneous: Small knee effusion trace popliteal cyst. Multiple small ganglion cysts about the prox imal tibiofibular joint, with the larger one measuring 1.4 cm. IMPRESSION: 1.Status post total knee arthroplasty, creating artifacts and limits evaluation. 2.High-grade tear of the distal quadricep tendon. 3.Low-grade tear of the proximal patellar tendon. Large area of cystic changes in the patella tendon, involving the near entire length of the patella tendon. 4.Numerable ossification about the superior pole of the patella, and 1.8 cm ossification in the Hoffa 's fat pad. 5.Multiple small ganglion cysts about the proximal tibiofibular joint. Reviewed by: Monie Ennis MD on 12/18/2023 6:52 PM PDT Approved by: Monie Ennis MD on 12/18/2023 6:52 PM PDT Station ID: [id number]
== END 2023-12-18 06:55 | disposition home or self-care (01) ==
LOC: DI 06:54
PROVIDERS: ATTEND Internal Medicine
DX: S76.112A Strain of left quadriceps muscle, fascia and tendon, initial encounter (principal); M67.462 Ganglion, left knee; Z96.652 Presence of left artificial knee joint; M67.864 Other specified disorders of tendon, left knee

== ENCOUNTER 2023-12-18 07:14 | Outpatient (CLI) | payer MEDICARE, OTHER ==
--- NOTE | 2023-12-19 16:30 | MRI Report ---
PROCEDURE: Lumbar Spine WO INDICATIONS: SCIATICA TECHNIQUE: Multiplanar multisequential MRI images of the lumbar spine were obtained without intraven ous contrast. COMPARISON: Lumbar spine 10/31/2016 x-ray FINDINGS: Alignment and Curvature: There is normal bony alignment. Bone Marrow: Discectomy and fusion L 2-3, L3-4 and L4-5 without instrumentation. Spinal Cord: Conus medullaris terminates at the L1 level. Visualized cord demonstrates normal signa l and size. Paraspinal Soft Tissues: Unremarkable perivertebral soft tissues. T12-L1: Mild disc bulge and central stenosis appear no foraminal stenosis. L1-L2: Disc bulge and arthropathy. Moderate central stenosis. Moderate bilateral foraminal stenosi s L2-L3: Discectomy with bulging disc capsule combines with ligamentum flavum laxity results in mode rate central stenosis. Moderate bilateral foraminal stenosis L3-L4: Discectomy with bulging disc capsule and arthropathy. Ligamentum flavum laxity. Severe centr al stenosis. Severe bilateral foraminal stenosis. L4-L5: Discectomy with bulging disc capsule and arthropathy. Mild to moderate central stenosis . Se neela bilateral foraminal stenosis greater on the left. L5-S1: Disc bulge and arthropathy. Mild central stenosis. Moderate bilateral foraminal stenosis IMPRESSION: Multilevel degenerative disc disease and arthropathy results in varying degrees of central and forami nal stenosis including severe central foraminal stenosis L3-4 Reviewed by: Rodger Wright MD on 12/19/2023 3:09 PM BK Approved by: Rodger Wright MD on 12/19/2023 3:09 PM AKDT Station ID: [id number]
== END 2023-12-18 07:15 | disposition home or self-care (01) ==
LOC: DI 07:14
PROVIDERS: ATTEND Internal Medicine
DX: M51.36 Other intervertebral disc degeneration, lumbar region (principal); M48.061 Spinal stenosis, lumbar region without neurogenic claudication; M51.37 Other intervertebral disc degeneration, lumbosacral region; M48.07 Spinal stenosis, lumbosacral region; M47.816 Spondylosis without myelopathy or radiculopathy, lumbar region; M47.817 Spondylosis without myelopathy or radiculopathy, lumbosacral region; S76.112A Strain of left quadriceps muscle, fascia and tendon, initial encounter; M67.462 Ganglion, left knee; Z96.652 Presence of left artificial knee joint; M67.864 Other specified disorders of tendon, left knee

== ENCOUNTER 2023-12-20 11:27 | Outpatient (CLI) | payer MEDICARE, OTHER ==
--- NOTE | 2023-12-23 08:28 | Mammography Report ---
BILATERAL DIGITAL SCREENING MAMMOGRAM 3D/2D: 12/20/2023 CLINICAL: Routine screening. Comparison is made to exams dated: 10/31/2022 mammogram, 04/12/2021 mammogram, and 06/17/2019 mammogram - [facility]. Both breasts are almost entirely fatty (category a/<25% glandular tissue). There is a new oval focal asymmetry in the right breast at 2 o'clock middle depth. No other significant masses, calcifications, or other findings are seen in either breast. IMPRESSION: INCOMPLETE: NEEDS ADDITIONAL IMAGING EVALUATION The new oval focal asymmetry in the right breast resembles a lymph node and is indeterminate. Additi onal views with possible ultrasound are recommended. Based on the Tyrer Cuzick model (a risk assessment model) the patient's lifetime risk is 5.4% and her 10 year risk is 4.8%. According to the ACR, ACS, and NCCN guidelines, an annual breast MRI exam karine g with mammogram is recommended if the patient's lifetime risk is 20% or greater. This exam was interpreted at Station ID: [id number]. NOTE: For mammograms, a report in lay terms will be sent to the patient. Approximately 15% of breast malignancies will not be visualized mammographically. In the management of a palpable breast mass, a negative mammogram must not discourage biopsy of a clinically suspicious lesion. Electronically Signed By: Devon laughlin/ayde:12/20/2023 14:33:24 ACR BI-RADS Category 0: Incomplete 3340F PARENCHYMAL PATTERN: (F) - The breast(s) demonstrate(s) diffuse fatty replacement. BI-RADS CATEGORY: (0) - 0 Mammo and [place] [id number] Immediate follow-up LATERALITY: (R)
== END 2023-12-20 11:28 | disposition home or self-care (01) ==
LOC: DI 11:27
DX: Z12.31 Encounter for screening mammogram for malignant neoplasm of breast (principal)

== ENCOUNTER 2024-01-30 12:32 | Outpatient (CLI) | payer MEDICARE, OTHER ==
--- NOTE | 2024-01-31 16:07 | Mammography Report ---
UNILATERAL RIGHT DIGITAL DIAGNOSTIC MAMMOGRAM 3D/2D: 01/30/2024 CLINICAL: Patient returns today to evaluate a focal asymmetry in the right breast. Comparison is made to exams dated: 10/31/2022 mammogram, 04/12/2021 mammogram, 06/17/2019 mammogram, mammogram, 04/21/2018 mammogram, and 12/29/2015 mammogram - [facility]. The breasts are almost entirely fatty (category a/<25% glandular tissue). This corresponds to finding seen on recent screening mammogram. There is a focal asymmetry in the right breast at 3 o'clock middle depth. This corresponds to finding seen on recent screening mammogram and has decreased in size. This area corresponds to reported area of trauma and skin bruising, which has now resolved. No other significant masses or calcifications are seen in the breast. IMPRESSION: BENIGN Right breast focal asymmetry at 3 o'clock middle depth, decreased since December 2023 and consistent wi th resolving area of bruising/trauma. Finding is benign. No mammographic evidence of malignancy. A 1 year screening mammogram is recommended. Findings and recommendations were conveyed to the patient during today's evaluation. Based on the Tyrer Cuzick model (a risk assessment model) the patient's lifetime risk is 5.4% and her 10 year risk is 4.8%. According to the ACR, ACS, and NCCN guidelines, an annual breast MRI exam karine g with mammogram is recommended if the patient's lifetime risk is 20% or greater. This exam was interpreted at Station ID: [id number]. NOTE: For mammograms, a report in lay terms will be sent to the patient. Approximately 15% of breast malignancies will not be visualized mammographically. In the management of a palpable breast mass, a negative mammogram must not discourage biopsy of a clinically suspicious lesion. Electronically Signed By: Lizet Castorena M.D., Ph.D. eb/:01/31/2024 10:09:39 ACR BI-RADS Category 2: Benign PARENCHYMAL PATTERN: (F) - The breast(s) demonstrate(s) diffuse fatty replacement. BI-RADS CATEGORY: (2) - 2 RECOMMENDATION: (ANNUAL) - Recommend routine annual screening mammography. [id number] 1 year screening LATERALITY: (B)
== END 2024-01-30 12:33 | disposition home or self-care (01) ==
LOC: DI 12:32
PROVIDERS: ATTEND Internal Medicine
DX: R92.8 Other abnormal and inconclusive findings on diagnostic imaging of breast (principal)